=== PATIENT | female | born 1995 | race Caucasian/White ===

== ENCOUNTER 2020-06-11 08:16 | Inpatient (IN) | payer OTHER, SELFPAY ==
[2020-06-11] VITALS (57 sets, daily range): BP systolic 121–155; BP diastolic 70–108; PULSE 93–162; RESP 16–45; TEMP 36.4–37.7; O2SAT 87–100; BMI 31.5
--- NOTE | ~2020-06-11 | XR_ITS ---
EXAMINATION: XR chest 1V portable EXAM DATE: 06/11/2020 09:06 INDICATION: Cough, shortness of breath and fever. TECHNIQUE: Portable AP frontal chest x-ray was obtained. Comparison is made to prior examination from 09/10/2012. FINDINGS: There is moderate to large amount of bilateral mid and lower lung zone acute airspace disea se, could be edema or pneumonia. Recommend considering COVID 19 given community prevalence. No pneumo thorax or pleural effusion. The cardiomediastinal silhouette is prominent but magnified on this AP te chnique. There are no osseous abnormalities identified. IMPRESSION: Moderate to large amount of bilateral acute airspace disease. Possible COVID pneumonia. Reviewed, dictated and finalized at location A. VING LATHE TENDER IMPRESSION: Moderate to large amount of bilateral acute airspace disease. Possi ble COVID pneumonia.
--- NOTE | ~2020-06-11 | CT_ITS ---
EXAMINATION: CTA chest PE abdomen pel DATE: 06/11/2020 09:34 INDICATION: Cough, shortness of breath, fever, vomiting and abdominal pain. TECHNIQUE: Computed tomography (CT) pulmonary angiogram of the chest was performed with 100 mL Omnipa que-350 intravenous contrast. Additional 3D reconstructions utilizing coronal maximum intensity proje ction (MIP) were performed. CT of the abdomen and pelvis was performed with intravenous contrast util izing the same contrast bolus following a short delay. Automated exposure control and iterative recon struction technique were employed. The dose-length product was 948.08 mGy-cm. COMPARISON: None FINDINGS: Chest: Good but suboptimal contrast opacification of the pulmonary arteries. There is mild streak artifact f rom dense contrast in the superior vena cava and right atrium. Mild scattered respiratory motion arabella fact which decreases sensitivity and specificity in some of the smaller subsegmental pulmonary arteri es. Apparent pulmonary arterial filling defect within a primary subsegmental pulmonary artery of the inferior segment of the lingula. No other pulmonary emboli identified. Patchy groundglass opacities t hroughout both lungs with mid to lower lung predominance which could represent moderate pulmonary rosa ma or pneumonia including COVID pneumonia. Large calcified right lower lobe nodule consistent with ol d granulomatous disease. No pleural effusion or pneumothorax. Heart size is normal with no evident ri ght heart strain. Thoracic aorta is normal in caliber with no dissection. No pathologically enlarged thoracic lymphadenopathy. Bones are unremarkable. Abdomen/pelvis: Diffuse hepatic steatosis with focal sparing along the gallbladder fossa. Gallbladder, pancreas, sple en, bilateral adrenal glands and kidneys are normal. Bowels including appendix are normal. Bladder, a nteverted uterus and left adnexa are unremarkable. 2 cm likely dominant follicle in the right ovary. No free intraperitoneal gas or fluid. No pathologically enlarged abdominal or pelvic lymphadenopathy. Mild lower lumbar spondylosis with disc bulges at L4-L5 and L5-S1. IMPRESSION: 1. Suggestion of a single pulmonary embolism in a first order branch of the inferior segmental pulmon doroteo artery of the lingula. Specificity is however decreased primarily by some motion artifact. 2. Prominent pulmonary patchy groundglass opacities with bilateral mid and lower lung predominance wh ich could represent moderate pulmonary edema or pneumonia, particularly COVID pneumonia. 3. Diffuse hepatic steatosis. Reviewed, dictated and finalized at location A. AND DIE ASSEMBLER IMPRESSION: 1. Suggestion of a single pulmonary embolism in a first order branch of the inf erior segmental pulmonary artery of the lingula. Specificity is however decreas ed primarily by some motion artifact. 2. Prominent pulmonary patchy groundglass opacities with bilateral mid and lowe r lung predominance which could represent moderate pulmonary edema or pneumonia , particularly COVID pneumonia. 3. Diffuse hepatic steatosis.
--- NOTE | ~2020-06-11 | US_ITS ---
EXAMINATION: US venous doppler LE EXAM DATE: 06/12/2020 15:32 INDICATION: Shortness of breath. Pulmonary embolism. TECHNIQUE: Multiple grayscale, color flow and Doppler images of the lower extremity deep venous syste ms bilaterally were obtained and reviewed. Correlation is made to pulmonary CT report 06/11/2020. FINDINGS: Right side: The right common femoral, femoral and profunda veins demonstrate normal color flow, respi ratory variation, augmentation and compressibility. Compressibility, color flow confirmed within the right popliteal, posterior tibial, peroneal, and greater saphenous veins. Left side: The left common femoral, femoral and profunda veins demonstrate normal color flow, respira tory variation, augmentation and compressibility. Compressibility, color flow confirmed within the l eft popliteal, posterior tibial, peroneal, and greater saphenous veins. IMPRESSION: 1. No lower extremity deep venous thrombosis bilaterally. Reviewed, dictated and finalized at location A. TRUCTION EQUIPMENT OVERHAULER
--- NOTE | ~2020-06-11 | XR_ITS ---
XR chest 1V portable DATE: 06/22/2020 05:44 INDICATION: Pneumonia TECHNIQUE: Portable AP chest on June 22, 2020 at 0530 hours COMPARISON: 06/20/2020 portable AP chest at 2113 hours FINDINGS: There are severe relatively symmetric bilateral patchy consolidating pulmonary infiltrates; diffusion diagnosis includes extensive bilateral pneumonia, less likely pulmonary edema or ARDS. Heart size appears normal. No pleural effusion or pneumothorax. IMPRESSION: Persistent severe bilateral pulmonary infiltrates Reviewed, dictated and finalized at location A. DING MACHINE OPERATOR AUTOMATIC
--- NOTE | ~2020-06-11 | XR_ITS ---
XR chest 1V portable DATE: 06/20/2020 21:13 INDICATION: Tachycardia. Bilateral pneumonia. History of pulmonary embolus. TECHNIQUE: Portable upright AP chest on 06/20/2020 at 2113 hours COMPARISON: 06/11/2020 portable AP chest FINDINGS: Severe diffuse bilateral pulmonary infiltrates are noted involving both lungs, increased in severity since 06/11/2020. Findings suggest extensive bilateral pneumonia versus less likely pulmonar y edema or pulmonary hemorrhage. No pleural effusion or pneumothorax. Heart size is normal. IMPRESSION: Diffuse severe bilateral pulmonary infiltrates, increased since 06/11/2020 Reviewed, dictated and finalized at location A. PROJECT MANAGER IMPRESSION: Diffuse severe bilateral pulmonary infiltrates, increased since 05/22
--- NOTE | ~2020-06-11 | CT_ITS ---
EXAMINATION: CTA chest PE protocol DATE: 06/18/2020 13:42 INDICATION: Persistent hypoxia. TECHNIQUE: Computed tomography (CT) pulmonary angiogram of the chest was performed with 100 mL Omnipa que-350 intravenous contrast. Additional 3D reconstructions utilizing coronal maximum intensity proje ction (MIP) were performed. Automated exposure control and iterative reconstruction technique were em ployed. The dose-length product was 375.69 mGy-cm. COMPARISON: None FINDINGS: Excellent contrast opacification of the pulmonary arteries. There is mild streak artifact from dense contrast in the superior vena cava and right atrium. Mild scattered respiratory motion artifact most prominent at the lung bases. No definitive pulmonary embolism. Significant interval progression in di ffuse bilateral crazy paving pattern with large region of groundglass opacity with intervening smooth septal line thickening. There is relative sparing of the immediate subpleural lung. A couple calcifi ed right lower lobe nodules consistent with old granulomatous disease. Heart size is normal. No peric ardial effusion. Small sliding-type hiatal hernia. Thoracic aorta is normal in caliber with no dissec tion. No pathologically enlarged thoracic lymphadenopathy. Diffuse hepatic steatosis. Mild S-shaped c urvature of the thoracic spine. IMPRESSION: 1. No pulmonary embolism. 2. Interval increase in extensive bilateral groundglass opacities and smooth septal line thickening. Differential includes moderate pulmonary edema and/or pneumonia. 3. Diffuse hepatic steatosis. Reviewed, dictated and finalized at location B. IOVASCULAR SONOGRAPHER IMPRESSION: 1. No pulmonary embolism. 2. Interval increase in extensive bilateral groundglass opacities and smooth se ptal line thickening. Differential includes moderate pulmonary edema and/or pne umonia. 3. Diffuse hepatic steatosis.
--- NOTE | 2020-06-11 08:27 | ECG_ITS ---
Measurements Intervals Hester Rate: 154 P: 32 LA: 133 QRS: 77 QRSD: 80 T: 14 QT: 313 QTc: 502 Interpretive Statements SINUS TACHYCARDIA NONSPECIFIC T-WAVE ABNORMALITY- INFERIOR LEADS BASELINE ARTIFACT- I, III, AVL ABNORMAL ECG Electronically Signed On 06-11-2020 9:03:46 LOCKER ROOM ATTENDANT by Julien Boyce D.O.
[2020-06-11] MEDS: SODIUM CHLORIDE 0.9% IV 2,000 ML 999 ML IV CONT (08:30)
--- NOTE | 2020-06-11 08:42 | PC.NURSE ---
PT PLACED ON 3L VIA NC DUE TO O2 BEING 87% ON RA, PT DENIES WEARING O2 AT HOME, PT O2 INCREASED TO 94% ON 3L, ERP KARLA INFORMED, NO NEW ORDERS.
[2020-06-11 08:52] LABS: Basophils Absolute Auto 0.1 K/mm3 (0.0-0.1); Basophils Percent Auto 0.5 % (0.2-1.2); Eosinophils Percent Auto 0.1 % (0-4.4); Hematocrit 44.4 % (37.0-47.0); Hemoglobin 15.4 g/dL (12.0-15.0); Immature Granulocyte Absolute 0.11 K/mm3 (0.00-0.031); Immature Granulocyte Percent A 0.6 % (0-0.5); Lymphocytes Absolute Auto 0.54 K/mm3 (0.9-3.2); Lymphocytes Percent Auto 2.9 % (18.3-44.2); Mean Corpuscular HGB Conc 34.7 g/dl (32-36); Mean Corpuscular Hemoglobin 32.6 pg (26-34); Mean Corpuscular Volume 93.9 fl (80-100); Mean Platelet Volume 8.8 fl (7.4-10.4); Monocytes Absolute Auto 0.2 K/mm3 (0.1-0.6); Monocytes Percent Auto 1.2 % (2.6-8.5); Neutrophils Absolute Auto 17.9 K/mm3 (1.3-6.7); Neutrophils Percent Auto 94.7 % (45.5-73.1); Platelet Count Result 453 k/mm3 (150-375); Red Blood Count 4.73 M/mm3 (4.2-5.4); Red Cell Distribution Width 11.5 % (11.5-14.5); White Blood Count 18.9 K/mm3 (4.5-10.0)
[2020-06-11 08:55] LABS: Add Urine Microscopic? YES; Appearance Urine Cloudy (Clear); Bacteria Urine 1+ /hpf; Bilirubin Urine 1+ (Negative); Blood Urine 1+ (Negative); Color Urine Amber (Yellow); Glucose Urine UA Negative (Negative); Ketones Urine Negative (Negative); Leukocyte Esterase Ur Negative LEU/UL (Negative); Mucus Urine Heavy /lpf; Nitrate Urine Negative (Negative); Protein Urine 2+ mg/dL (Negative); RBC Urine 0-2 /hpf (0-2); Specific Grav Ur 1.026 (1.001-1.035); Squamous Epithelial Cell Urine Many /hpf (Few)
[2020-06-11] MEDS: ONDANSETRON INJ 4 MG/2 ML VIAL IV PUSH (08:59)
--- NOTE | 2020-06-11 09:01 | PC.NURSE ---
rADIOLOGY AT BEDSIDE FOR CHEST XRAY
[2020-06-11 09:03] LABS: D Dimer 2.56 ug/mL (<0.48)
[2020-06-11 09:03] LABS: Alanine Aminotransferase 101 U/L (4-35); Albumin Level 4.1 g/dL (3.5-5.1); Alkaline Phosphatase 154 U/L (38-126); Anion Gap 7 mmol/L (8-16); Aspartate Amino Transferase 108 U/L (14-36); Bilirubin,Total 1.3 mg/dL (0.2-1.3); Blood Urea Nitrogen 10 mg/dL (7-17); Calcium 9.6 mg/dL (8.4-10.2); Carbon Dioxide 34 mmol/L (22-30); Chloride 93 mmol/L (98-107); Estimated Glomerular Filt Rate > 60; Glucose 157 mg/dL (65-105); Lipase 52 U/L (23-300); Potassium 3.4 mmol/L (3.4-5.0); Sodium 134 mmol/L (137-145)
[2020-06-11 09:15] LABS: Troponin I < 0.012 ng/mL (0.000-0.034)
[2020-06-11 10:10] LABS: Partial Thromboplastin Time 38.7 SECONDS (22.3-36.8)
--- NOTE | 2020-06-11 10:14 | ED.GENADULT ---
HPI - General Adult General Chief complaint: Upper Respiratory Infection Stated complaint: vomiting Time Seen by Provider: 06/11/20 08:23 History of Present Illness HPI narrative: Patient is a 24-year-old female presents the emergency department with chief complaint of vomiting. Patient states that she has been coughing for several days and is actually been coughing so much that she starts vomiting. The patient states she feels extremely weak also feels extremely short of breath as well. Patient states is worsened with exertion. Patient reports has had a low-grade fever at home as well. Patient is unsure of any Covid exposure. Patient denies diarrhea denies localizing abdominal pain. Related Data Home Medications Medication Instructions Recorded Confirmed No Home Medications 06/11/20 06/11/20 Allergies Allergy/AdvReac Type Severity Reaction Status Date / Time No Known Allergies Allergy Verified 06/11/20 08:30 Review of Systems Review of Systems: Narrative: A 10 system review of systems was completed on the patient and is negative except for what is stated in the HPI. Nursing and ancillary documentation was reviewed. [facility] Social History Social History Smoking status: Never smoker Alcohol intake: current Substance use: never Gender identity (if verbalized by the patient): Female Exam Narrative: Exam Narrative: GENERAL: Well-appearing, well-nourished, and in no acute distress. HEAD: Normocephalic, atraumatic. EYES: PERRLA and EOMI. ENT: Nares clear, no rhinorrhea or epistaxis. Mucous membranes moist. NECK: Supple. CHEST: Clear to auscultation. No respiratory distress. HEART: Regular rate and rhythm. No murmur heard. Normal peripheral pulses. ABDOMEN: Soft, nontender, nondistended, normal active bowel sounds. EXTREMITIES: Normal range of motion. No edema. SKIN: Warm, dry, no rash. NEURO: No focal deficits. Alert and oriented x3. PSYCH: Normal mood and affect. Course Vital Signs Vital signs: Vital Signs Temperature 37.1 C 06/11/20 08:25 Pulse Rate 162 H 06/11/20 08:25 Respiratory Rate 32 H 06/11/20 08:25 Blood Pressure 155/70 H 06/11/20 08:25 Pulse Oximetry 87 L 06/11/20 08:25 Temperature 37.7 C H 06/11/20 09:00 Pulse Rate 119 H 06/11/20 09:46 Respiratory Rate 29 H 06/11/20 09:46 Blood Pressure 137/85 06/11/20 09:46 Pulse Oximetry 97 06/11/20 09:46 Medical Decision Making Vital Signs Vital Signs: Vital Signs Temperature 37.1 C 06/11/20 08:25 Pulse Rate 162 H 06/11/20 08:25 Respiratory Rate 32 H 06/11/20 08:25 Blood Pressure 155/70 H 06/11/20 08:25 Pulse Oximetry 87 L 06/11/20 08:25 Temperature 37.7 C H 06/11/20 09:00 Pulse Rate 119 H 06/11/20 09:46 Respiratory Rate 29 H 06/11/20 09:46 Blood Pressure 137/85 06/11/20 09:46 Pulse Oximetry 97 06/11/20 09:46 Lab Data Result diagrams: 06/11/20 08:35 06/11/20 08:35 Labs: Lab Results 06/11/20 06/11/20 06/11/20 Range/Units 08:34 08:34 08:35 WBC 18.9 H (4.5-10.0) K/mm3 RBC 4.73 (4.2-5.4) M/mm3 Hgb 15.4 H (12.0-15.0) g/dL Hct 44.4 (37.0-47.0) % MCV 93.9 (80-100) fl MCH 32.6 (26-34) pg MCHC 34.7 (32-36) g/dl RDW 11.5 (11.5-14.5) % Plt Count 453 H (150-375) k/mm3 MPV 8.8 (7.4-10.4) fl Immature Gran % (Auto) 0.6 H (0-0.5) % Neut % (Auto) 94.7 H (45.5-73.1) % Lymph % (Auto) 2.9 L (18.3-44.2) % Trimble % (Auto) 1.2 L (2.6-8.5) % Eos % (Auto) 0.1 (0-4.4) % Baso % (Auto) 0.5 (0.2-1.2) % Lymph # (Auto) 0.54 L (0.9-3.2) K/mm3 Tr[place]ble # (Auto) 0.2 (0.1-0.6) K/mm3 Eos # (Auto) 0.0 (0-0.3) K/mm3 Baso # (Auto) 0.1 (0.0-0.1) K/mm3 Abs Immat Gran (auto) 0.11 H (0.00-0.031) K/mm3 Absolute Neuts (auto) 17.9 H (1.3-6.7) K/mm3 Absolute Nucleated RBC 0.0 (0.0-0.012) K/mm3 Nucleated R
[2020-06-11] MEDS: DEXAMETHASONE SOD PHOS INJ 4 MG/ML VIAL 6 MG IV PUSH (10:52)
[2020-06-11] MEDS: ENOXAPARIN 100 MG/ML SYRINGE 90 MG SUB-Q ×2 (10:53→23:31)
--- NOTE | 2020-06-11 11:06 | PC.NURSE ---
SPOKE WITH PT ABOUT COMPAZINE ORDER, VERBAL ORDER TO SWITCH FROM IM COMPAZINE TO IVP.
[2020-06-11] MEDS: PROCHLORPERAZINE EDISYLATE 10 MG/2 ML VIAL IV PUSH (11:07)
--- NOTE | 2020-06-11 12:19 | PC.NURSE ---
PT DENIES WANTING LUNCH TRAY BUT HAS ASKED FOR CRACKERS AND SPRITE DURING ROUNDING, PT PROVIDED WITH SALTINES AND SPRITE WITH CUP OF ICE.
--- NOTE | 2020-06-11 12:39 | PC.NURSE ---
Rachna, ED Registration aware pt. needs to be changed to boarded status.
--- NOTE | 2020-06-11 14:00 | PM.IMHP ---
H&P: HPI History of Present Illness Date/Time: 06/11/20 14:00 Chief Complaint: Cough, shortness of breath, weakness. Narrative: This is a 24-year-old female with hepatic steatosis and anxiety who presented to the emergency department earlier today via private vehicle from home with complaints of cough, shortness of breath, and weakness. She has not been feeling well since the weekend with multiple symptoms to include decreased appetite, nausea, vomiting (mainly posttussive), sinus congestion, cough occasionally productive of clear phlegm, dyspnea on exertion, myalgias, arthralgias, and generalized weakness. She also complains of mild, midsternal chest discomfort on deep inspiration, not necessarily pleuritic. On arrival to triage, her SpO2 was in the mid 80s on room air; a subsequent chest CTA demonstrated prominent, bilateral ground-glass opacities inside technical sales representative of pneumonia or pulmonary edema as well as suggestion of a small pulmonary embolism in the lingula. She has no known exposure to those positive for COVID-19 and she reports wearing a mask a majority of the time when interacting with the public. She has had a low-grade fever and occasional chills and sweats. No anosmia or dysgeusia. No diarrhea. No dysphagia or concerns for aspiration. No lower extremity edema, calf pain, or tenderness. No history of venous thromboembolism, cardiac disease, or immunosuppression. Review of Systems Review of Systems: Narrative: Twelve systems were reviewed with pertinent positives and negatives as per HPI. No lightheadedness or dizziness. She denies focal weakness and paresthesias. Last menstrual period was about a week ago. No dysuria. Of note the patient was found to have diffuse hepatic steatosis on imaging done at outside facility sometime last fall. She admitted to drinking about 3 alcoholic beverages a day but has since stopped drinking. Except as documented, all other systems were reviewed and are negative. [facility] Past Medical History Medical History (Updated 06/11/20 @ 21:25 by Yamila Chery PA-C) Anxiety Hepatic steatosis Surgical History Surgical History (Updated 06/11/20 @ 21:21 by Yamila Chery PA-C) No history of previous surgery Family History Family History Other No significant family history Social History Social History (Updated 06/11/20 @ 21:22 by Ymaila Chery PA-C) Social History: The patient lives in [place] with her boyfriend. Lifelong nonsmoker. No illicit substance use. She used to drink about 3 alcoholic beverages a day but quit in the fall. She designates her dad Omid as her surrogate decision maker and she wishes to be a full code. Spiritual care concerns: No Meds Home Medications and Allergies Home Medications Medication Instructions Recorded Confirmed Type No Home Medications 06/11/20 06/11/20 History Allergies Allergy/AdvReac Type Severity Reaction Status Date / Time No Known Allergies Allergy Verified 06/11/20 08:30 Vital Signs Vital Signs - 24 hr 06/11/20 08:25 06/11/20 08:42 06/11/20 08:43 Temperature 98.8 F Pulse Rate 162 H 149 H Respiratory Rate 32 H 31 H Blood Pressure 155/70 H Pulse Oximetry 87 L 90 87 L 06/11/20 08:45 06/11/20 08:46 06/11/20 08:47 Temperature Pulse Rate 143 H 143 H 140 H Respiratory Rate 41 H 45 H 31 H Blood Pressure 141/86 H Pulse Oximetry 93 92 93 06/11/20 09:00 06/11/20 09:01 06/11/20 09:15 Temperature 99.8 F H Pulse Rate 139 H 138 H 128 H Respiratory Rate 44 H 41 H 33 H Blood Pressure 142/95 H Pulse Oximetry 95 95 97 06/11/20 09:16 06/11/20 09:35 06/11/20 09:36 Temperature Pulse Rate 132 H 128 H Respiratory Rate 27 H 33 H 31 H Blood Pressure 132/86 136/84 Pulse Oximetry 98 97 97 06/11/20 09:45 06/11/20 09:46 06/11/20 09:47 Temperature Pulse Rate 119 H 119 H 123 H Respiratory Rate 29 H 29
--- NOTE | 2020-06-11 15:00 | ADMGEN ---
This patient, Mary Reina, was admitted to IMU Room 213-01. Patient/family oriented to hospital policies and general routines including ID bracelet, bed and alarms, visiting hours, pain management, procedures, bathroom and other care routines, personal items, smoking policy, room service/diet, and visiting hours. Information on how to activate the Rapid Response Team has been discussed. Patient/Family are encouraged to report perceived risks to care and to ask questions if they do not understand what they are told or what they should do.
[2020-06-11 16:53] LABS: Hemoglobin A1C 5.2 % (<5.7)
[2020-06-11 16:54] LABS: Lactate Dehydrogenase 1236 U/L (313-618); Magnesium 2.4 mg/dL (1.6-2.3)
[2020-06-11 17:04] LABS: NT Pro B Type Natriuretic Pept 61 PG/ML (5-100)
[2020-06-11 17:09] LABS: Alveolar/Arterial O2 Gradient 322.6 mmHg; Base Excess ABG 3.9 mEq/l (+/-2.0); Carboxyhemoglobin 0.3 % THb (0-2.0); Fractional Inspired Oxygen 60 %; HCO3 ABG 27.4 mEq/l (22.0-26.0); Methemoglobin ABG 0.3 %THb (0-1.5); Oxygen Content ABG 18.8 %vol (16.0-22.0); Oxygen Saturation ABG 93.8 % (95.0-100.0); Oxyhemoglobin 92.3 % THb (90.0-100.0); PCO2 ABG 37.6 mmHg (35.0-45.0); PO2 ABG 63.8 mmHg (80.0-100.0); PO2 FiO2 Ratio Arterial Blood 1.06 %; Reduced Hemoglobin 7.1 %THb (0-5.0); Total Hemoglobin 14.5 g/dL (12.0-18.0)
[2020-06-11 17:10] LABS: Device HIGH FLOW NASAL CANN; Modified Allen's Test Pass; Site Drawn LEFT RADIAL
[2020-06-11 17:31] LABS: CRP 34.1 mg/dL (<1.0)
[2020-06-11 17:38] LABS: SARS-CoV-2 RNA PCR Negative
[2020-06-11] MEDS: SODIUM CHLORIDE 0.9% IV 1,000 ML 125 ML IV CONT (18:58)
[2020-06-12] VITALS (15 sets, daily range): BP systolic 121–141; BP diastolic 70–94; PULSE 77–132; RESP 18–30; TEMP 36.1–37.8; O2SAT 78–99
[2020-06-12] MEDS: ONDANSETRON INJ 4 MG/2 ML VIAL IV PUSH ×2 (02:14→11:31)
[2020-06-12 05:28] LABS: Hemoglobin 13.1 g/dL (12.0-15.0); Mean Corpuscular HGB Conc 34.5 g/dl (32-36); Mean Corpuscular Hemoglobin 32.6 pg (26-34); Mean Corpuscular Volume 94.5 fl (80-100); Mean Platelet Volume 8.7 fl (7.4-10.4); Platelet Count Result 414 k/mm3 (150-375); Red Blood Count 4.02 M/mm3 (4.2-5.4); Red Cell Distribution Width 11.7 % (11.5-14.5)
[2020-06-12 05:43] LABS: Alanine Aminotransferase 98 U/L (4-35); Albumin Level 3.2 g/dL (3.5-5.1); Alkaline Phosphatase 125 U/L (38-126); Anion Gap 2 mmol/L (8-16); Aspartate Amino Transferase 129 U/L (14-36); Bilirubin,Total 0.8 mg/dL (0.2-1.3); Blood Urea Nitrogen 6 mg/dL (7-17); Calcium 8.1 mg/dL (8.4-10.2); Carbon Dioxide 32 mmol/L (22-30); Chloride 99 mmol/L (98-107); Estimated CRCL calculation 134 ml/min; Estimated Glomerular Filt Rate > 60; Glucose 121 mg/dL (65-105); Potassium 3.1 mmol/L (3.4-5.0); Sodium 133 mmol/L (137-145)
[2020-06-12] MEDS: DEXAMETHASONE 2 MG TABLET 6 MG PO (11:30)
[2020-06-12] MEDS: ENOXAPARIN 100 MG/ML SYRINGE 90 MG SUB-Q ×2 (11:32→21:21)
--- NOTE | 2020-06-12 13:27 | PM.IMPN ---
Progress Note: A&P Assessment and Plan (1) Sepsis: Code(s): A41.9 - Sepsis, unspecified organism Status: Acute Assessment and Plan: The patient meets criteria for sepsis with low-grade fever, leukocytosis, tachycardia, and acute respiratory failure with hypoxia secondary to underlying pneumonia. Lactic acid level is within normal limits. WBC 18.9 on admission but better today. Blood cultures NGTD. Contineu IV abx. (2) Acute respiratory failure with hypoxia: Code(s): J96.01 - Acute respiratory failure with hypoxia Status: Acute Assessment and Plan: The patient was hypoxic on admission and now at 10 L high-flow. SARS2-CoV-2 test was negative 06/11; repeat test pending due to strong suspicion for COVID-19. Continue droplet isolation. She received a dose of dexamethasone in the ED 06/11 and this has been continued. Continue abx for bacterial PNA. Mucinex for cough. (3) Bilateral pneumonia: Code(s): J18.9 - Pneumonia, unspecified organism Status: Acute Assessment and Plan: WBC elevated to 18.9K and now having low grade fevers. Chest CT showing bilateral LL airspace disease. Sputum to be sent for culture. Legionella, strep pneumoniae, and mycoplasma serologies sent as well. Procalcitonin level pending. Repeat SARS2-CoV2 pending. Continue IV abx. (4) Person under investigation for COVID-19: Code(s): Z20.822 - Contact with and (suspected) exposure to COVID-19 Status: Acute Assessment and Plan: As above. Repeat testing ordered. (5) Pulmonary embolism: Qualifiers: Acute cor pulmonale presence: without acute cor pulmonale Chronicity: acute Pulmonary embolism type: unspecified Qualified Code(s): I26.99 - Other pulmonary embolism without acute cor pulmonale Code(s): I26.99 - Other pulmonary embolism without acute cor pulmonale Status: Acute Assessment and Plan: Chest CTA showing a small pulmonary emboli in the lingula. She was started on Lovenox 1 milligram/kilogram Q12H. Check dopplers; consider Echo. (6) Hepatic steatosis: Code(s): K76.0 - Fatty (change of) liver, not elsewhere classified Status: Acute Assessment and Plan: LFTs were previously elevated an outpatient, likely due to hepatic steatosis. Levels are a bit higher than what she typically runs and may very well be due to underlying infection/sepsis. Continue to follow. Subjective Date/time seen: 06/12/20 13:27 Interval history: Date of service 06/12 24-year-old female with hepatic steatosis here for cough, shortness of and weakness found to have pneumonia with sepsis. Patient feels slightly better today. She feels less short of breath. No chest pain. Poor appetite with nausea. Also having diarrhea. No anosmia but does have dysgeusia. Exam Narrative: Exam Narrative: 100.0 141/81 128 28 92% Gen - NARD lying semi-recumbent in bed Chest - few basilar rhocnhi o/e distant BS CV -tachycardic, regular. Telemetry showing sinus tachycardia Abd - Soft, NT/ND, Positive BS Ext - No pedal edema Psych - anxious mood and affect Skin - Warm and dry Objective Data Vital Signs Vital Signs: Vital Signs - 24 hr 06/11/20 13:30 06/11/20 13:31 06/11/20 13:45 Temperature Pulse Rate 110 H 109 H 112 H Respiratory Rate 21 H 23 H 23 H Blood Pressure 135/102 H Pulse Oximetry 92 93 95 06/11/20 14:24 06/11/20 15:02 06/11/20 15:30 Temperature 97.6 F Pulse Rate 115 H 112 H Respiratory Rate 17 22 H Blood Pressure 133/94 H 143/90 H Pulse Oximetry 97 87 L 89 L 06/11/20 15:35 06/11/20 16:00 06/11/20 17:32 Temperature 98.6 F Pulse Rate 111 H 117 H Respiratory Rate 20 Blood Pressure 143/102 H Pulse Oximetry 93 94 93 06/11/20 18:00 06/11/20 20:00 06/11/20 22:00 Temperature 97.5 F L Pulse Rate 125 H 122 H 122 H Respiratory Rate 18 Blood Pressure 132/85 Pulse Oximetry 94 06/12/20
[2020-06-12] MEDS: IBUPROFEN 200 MG TABLET PO (14:08)
[2020-06-12] MEDS: POTASSIUM CHLORIDE 20 MEQ TABLET 40 MEQ PO (14:09)
--- NOTE | 2020-06-12 16:27 | PC.NURSE ---
This patient, Mary Reina, was transferred to ICU-11 on 06/12/20 at 1620. Personal belongings sent with patient. Report given to Yann FLORES. Appropriate documentation sent with patient.
--- NOTE | 2020-06-12 16:39 | PC.NURSE ---
At approximately 1545 it was noted that patient's O2 was at 77% on her 10L Highflow Cannula.Patient was assessed and oxygen was turned up to 15l Highflow Cannula and 15L/NRB was supplemented as well. was notified of patient's change in condition. New orders to transfer patient to ICU were received. Will notify patient's father of this transfer.
[2020-06-12] MEDS: guaiFENesin 12 HR 600 MG TABCR PO (21:21)
[2020-06-12] MEDS: LOPERAMIDE HCL 2 MG CAPSULE 4 MG PO (22:07)
[2020-06-13] VITALS (21 sets, daily range): BP systolic 121–141; BP diastolic 61–90; PULSE 103–131; RESP 15–30; TEMP 36.6–38.5; O2SAT 90–99
[2020-06-13] MEDS: IBUPROFEN 200 MG TABLET PO ×2 (00:09→10:49)
[2020-06-13 05:57] LABS: Basophils Absolute Auto 0.1 K/mm3 (0.0-0.1); Basophils Percent Auto 0.3 % (0.2-1.2); Eosinophils Absolute Auto 0.1 K/mm3 (0-0.3); Eosinophils Percent Auto 0.7 % (0-4.4); Hemoglobin 13.6 g/dL (12.0-15.0); Immature Granulocyte Absolute 0.15 K/mm3 (0.00-0.031); Immature Granulocyte Percent A 0.9 % (0-0.5); Lymphocytes Percent Auto 6.2 % (18.3-44.2); Mean Corpuscular Hemoglobin 32.5 pg (26-34); Mean Corpuscular Volume 95.7 fl (80-100); Mean Platelet Volume 8.9 fl (7.4-10.4); Monocytes Absolute Auto 0.1 K/mm3 (0.1-0.6); Monocytes Percent Auto 0.9 % (2.6-8.5); Neutrophils Absolute Auto 14.7 K/mm3 (1.3-6.7); Platelet Count Result 440 k/mm3 (150-375); Red Blood Count 4.18 M/mm3 (4.2-5.4); Red Cell Distribution Width 11.9 % (11.5-14.5); White Blood Count 16.2 K/mm3 (4.5-10.0)
[2020-06-13 06:16] LABS: Alanine Aminotransferase 108 U/L (4-35); Albumin Level 3.2 g/dL (3.5-5.1); Alkaline Phosphatase 128 U/L (38-126); Anion Gap 4 mmol/L (8-16); Aspartate Amino Transferase 119 U/L (14-36); Bilirubin,Total 0.6 mg/dL (0.2-1.3); Blood Urea Nitrogen 8 mg/dL (7-17); Calcium 8.6 mg/dL (8.4-10.2); Carbon Dioxide 34 mmol/L (22-30); Chloride 96 mmol/L (98-107); Estimated CRCL calculation 133 ml/min; Estimated Glomerular Filt Rate > 60; Glucose 122 mg/dL (65-105); Magnesium 2.3 mg/dL (1.6-2.3); Potassium 3.5 mmol/L (3.4-5.0); Sodium 134 mmol/L (137-145)
--- NOTE | 2020-06-13 06:22 | PC.NURSE ---
This patient, Mary Reina, was transferred to [ [id number]] on 06/13/20 at 0622. Personal belongings sent with patient. Report given to [ Kelly FLORES]. Appropriate documentation sent with patient.
[2020-06-13] MEDS: guaiFENesin 12 HR 600 MG TABCR PO ×2 (10:46→21:29)
[2020-06-13] MEDS: DEXAMETHASONE 2 MG TABLET 6 MG PO (10:47)
[2020-06-13] MEDS: PANTOPRAZOLE 40 MG TABLET PO (10:48)
[2020-06-13] MEDS: ENOXAPARIN 100 MG/ML SYRINGE 90 MG SUB-Q ×2 (10:48→21:30)
[2020-06-13] MEDS: ONDANSETRON INJ 4 MG/2 ML VIAL IV PUSH (10:53)
--- NOTE | 2020-06-13 16:10 | PM.IMPN ---
Progress Note: A&P Assessment and Plan (1) Sepsis: Code(s): A41.9 - Sepsis, unspecified organism Status: Acute Assessment and Plan: The patient meets criteria for sepsis with fever, leukocytosis, tachycardia, and acute respiratory failure with hypoxia secondary to underlying pneumonia. Lactic acid level is within normal limits. WBC 18.9 on admission but better overall. Blood cultures NGTD. Contineue IV abx. (2) Acute respiratory failure with hypoxia: Code(s): J96.01 - Acute respiratory failure with hypoxia Status: Acute Assessment and Plan: The patient was hypoxic on admission and now at 30L/min high-flow. SARS2-CoV-2 test was negative 06/11; repeat test pending due to strong suspicion for COVID-19. Continue droplet isolation. She received a dose of dexamethasone in the ED 06/11 and this has been continued. Continue abx for bacterial PNA. Mucinex for cough. (3) Bilateral pneumonia: Code(s): J18.9 - Pneumonia, unspecified organism Status: Acute Assessment and Plan: WBC elevated to 18.9K and with fevers. Chest CT showing bilateral LL airspace disease. Sputum to be sent for culture. Legionella, strep pneumoniae, and mycoplasma serologies sent as well. Procalcitonin level pending. Repeat SARS2-CoV2 pending. Continue IV abx. (4) Person under investigation for COVID-19: Code(s): Z20.822 - Contact with and (suspected) exposure to COVID-19 Status: Acute Assessment and Plan: As above. Repeat testing ordered. (5) Pulmonary embolism: Qualifiers: Acute cor pulmonale presence: without acute cor pulmonale Chronicity: acute Pulmonary embolism type: unspecified Qualified Code(s): I26.99 - Other pulmonary embolism without acute cor pulmonale Code(s): I26.99 - Other pulmonary embolism without acute cor pulmonale Status: Acute Assessment and Plan: Chest CTA showing a small pulmonary emboli in the lingula. She was started on Lovenox 1 milligram/kilogram Q12H. LE venous dopplers negative. (6) Hepatic steatosis: Code(s): K76.0 - Fatty (change of) liver, not elsewhere classified Status: Acute Assessment and Plan: LFTs were previously elevated an outpatient, likely due to hepatic steatosis. Levels have loc up and down since admission related to underlying infection/sepsis. Continue to follow. Subjective Date/time seen: 06/13/20 16:10 Interval history: Date of service 06/13 24-year-old female with hepatic steatosis here for cough, shortness of and weakness found to have pneumonia with sepsis. Feels much better. Decreased cough today. Feels less SOB. No CP. No diarrhea. Eating better. Exam Narrative: Exam Narrative: Tm 101.3 100.9 128/72 127 22 95% HFNC Gen - NARD Chest - distant BS CV -tachycardic, regular. Telemetry showing sinus tachycardia Abd - Soft, NT/ND, Positive BS Ext - No pedal edema Psych - nml mood and affect Skin - Warm and dry Objective Data Vital Signs Vital Signs: Vital Signs - 24 hr 06/12/20 16:17 06/12/20 18:00 06/12/20 20:00 Temperature 99.3 F Pulse Rate 112 H 101 H Respiratory Rate 30 H 28 H Blood Pressure 139/92 H 128/94 H Pulse Oximetry 94 99 95 06/12/20 21:30 06/12/20 22:00 06/13/20 00:00 Temperature 101.3 F H Pulse Rate 99 104 H 115 H Respiratory Rate 22 H 15 Blood Pressure 125/81 124/80 Pulse Oximetry 92 94 92 06/13/20 00:09 06/13/20 01:09 06/13/20 01:41 Temperature 101.3 F H 99.3 F Pulse Rate 114 H Respiratory Rate 28 H Blood Pressure 137/86 Pulse Oximetry 90 06/13/20 04:00 06/13/20 05:30 06/13/20 06:00 Temperature 99.2 F Pulse Rate 110 H 113 H 110 H Respiratory Rate 30 H Blood Pressure 129/78 Pulse Oximetry 94 94 06/13/20 08:00 06/13/20 10:00 06/13/20 10:49 Temperature 100.8 F H 100.8 F H Pulse Rate 131 H 113 H Respiratory Rate 28 H Blood Pressure 141/81 H Pulse Oxime
[2020-06-13 17:16] LABS: SARS-CoV-2 RNA PCR Negative
[2020-06-14] VITALS (18 sets, daily range): BP systolic 113–145; BP diastolic 61–79; PULSE 99–125; RESP 20–26; TEMP 36.2–37.3; O2SAT 90–100
[2020-06-14 03:49] LABS: Hemoglobin 13.5 g/dL (12.0-15.0); Mean Corpuscular HGB Conc 34.6 g/dl (32-36); Mean Corpuscular Hemoglobin 32.8 pg (26-34); Mean Corpuscular Volume 94.9 fl (80-100); Mean Platelet Volume 8.6 fl (7.4-10.4); Platelet Count Result 528 k/mm3 (150-375); Red Blood Count 4.11 M/mm3 (4.2-5.4); Red Cell Distribution Width 11.9 % (11.5-14.5); White Blood Count 19.3 K/mm3 (4.5-10.0)
[2020-06-14 03:55] LABS: Alanine Aminotransferase 108 U/L (4-35); Albumin Level 3.4 g/dL (3.5-5.1); Alkaline Phosphatase 147 U/L (38-126); Anion Gap 6 mmol/L (8-16); Aspartate Amino Transferase 135 U/L (14-36); Bilirubin,Total 0.9 mg/dL (0.2-1.3); Blood Urea Nitrogen 10 mg/dL (7-17); Calcium 8.8 mg/dL (8.4-10.2); Carbon Dioxide 34 mmol/L (22-30); Chloride 94 mmol/L (98-107); Estimated CRCL calculation 103 ml/min; Estimated Glomerular Filt Rate > 60; Glucose 127 mg/dL (65-105); Potassium 3.3 mmol/L (3.4-5.0); Sodium 134 mmol/L (137-145)
[2020-06-14 04:42] LABS: Vancomycin Trough < 5.0 ug/mL (10.0-20.0)
[2020-06-14] MEDS: DEXAMETHASONE 2 MG TABLET 6 MG PO (08:36)
[2020-06-14] MEDS: PANTOPRAZOLE 40 MG TABLET PO (08:37)
[2020-06-14] MEDS: guaiFENesin 12 HR 600 MG TABCR PO ×2 (08:39→20:12)
[2020-06-14] MEDS: ENOXAPARIN 100 MG/ML SYRINGE 90 MG SUB-Q ×2 (08:39→20:12)
--- NOTE | 2020-06-14 11:51 | PM.IMPN ---
Progress Note: A&P Assessment and Plan (1) Sepsis: Code(s): A41.9 - Sepsis, unspecified organism Status: Acute Assessment and Plan: The patient meets criteria for sepsis with fever, leukocytosis, tachycardia, and acute respiratory failure with hypoxia secondary to underlying pneumonia. Lactic acid level is within normal limits. WBC back up but could be from steroids. Blood cultures NGTD. Continue IV abx. (2) Acute respiratory failure with hypoxia: Code(s): J96.01 - Acute respiratory failure with hypoxia Status: Acute Assessment and Plan: The patient was hypoxic on admission and now at 60L/min high-flow. SARS2-CoV-2 test was negative 06/11 and again 06/12. Still with strong suspicion so will repeat a 3rd time. Consider also bacterial PNA with possibly underlying lung issue (A1AT deficiency?). Continue droplet isolation. She received a dose of dexamethasone in the ED 06/11 and this will be continued. Continue abx for bacterial PNA. Mucinex for cough. (3) Bilateral pneumonia: Code(s): J18.9 - Pneumonia, unspecified organism Status: Acute Assessment and Plan: WBC elevated to 18.9K and with fevers. Chest CT showing bilateral airspace disease mostly posterior and lower. Sputum to be sent for culture. Legionella, strep pneumoniae, and mycoplasma serologies sent as well. Procalcitonin level pending. Fevers waning but WBC up (could be from steroids). SARS2-CoV2 negative x2. Continue IV abx. (4) Person under investigation for COVID-19: Code(s): Z20.822 - Contact with and (suspected) exposure to COVID-19 Status: Acute Assessment and Plan: As above. Patient tested negative on 06/11 and again 06/12. Still with concern for COVID. Repeat a 3rd time before stopping isolation. Increase activity. Have patient lie prone as she toelrates. (5) Pulmonary embolism: Qualifiers: Acute cor pulmonale presence: without acute cor pulmonale Chronicity: acute Pulmonary embolism type: unspecified Qualified Code(s): I26.99 - Other pulmonary embolism without acute cor pulmonale Code(s): I26.99 - Other pulmonary embolism without acute cor pulmonale Status: Acute Assessment and Plan: Chest CTA showing a small pulmonary emboli in the lingula. She was started on Lovenox therapeutic dose. LE venous dopplers negative. Check Echo. (6) Hepatic steatosis: Code(s): K76.0 - Fatty (change of) liver, not elsewhere classified Status: Acute Assessment and Plan: LFTs were previously elevated an outpatient. She states she was diagnosed with hepatic steatosis when she went to the ED in [place]. She has not had any further workup in this regard. LFTs have been up and down since admission related to underlying infection/sepsis. Proceed with workup. Preg test negative. Continue to follow. Subjective Date/time seen: 06/14/20 11:51 Interval history: Date of service 06/14 24-year-old female with hepatic steatosis here for cough, shortness of and weakness found to have pneumonia with sepsis. Feels much better. Decreased cough today. Feels less SOB. No CP. No diarrhea. Eating better. Exam Narrative: Exam Narrative: Tm 101.3 100.9 128/72 127 22 95% HFNC Gen - NARD Chest - distant BS CV -tachycardic, regular. Telemetry showing sinus tachycardia Abd - Soft, NT/ND, Positive BS Ext - No pedal edema Psych - nml mood and affect Skin - Warm and dry Objective Data Vital Signs Vital Signs: Vital Signs - 24 hr 06/13/20 12:00 06/13/20 14:00 06/13/20 15:09 Temperature 100.9 F H Pulse Rate 127 H 103 H Respiratory Rate 22 H Blood Pressure 128/72 Pulse Oximetry 94 97 06/13/20 15:52 06/13/20 16:00 06/13/20 18:00 Temperature 98 F Pulse Rate 117 H 113 H Respiratory Rate 26 H Blood Pressure 132/86 Pulse Oximetry 95 94 06/13/20 20:00 06/13/20 22:00 06/13/20 23:51 Temperature 99
[2020-06-14 13:17] LABS: Ammonia 24 umol/L (9-30)
[2020-06-14 13:43] LABS: Iron 21 ug/dL (37-170)
[2020-06-14 13:52] LABS: Percent Iron Saturation 10 % (20-50)
[2020-06-14 14:15] LABS: Hepatitis B Surface Antigen Negative (Negative)
[2020-06-14 14:21] LABS: HAV RESULT Negative (Negative); Hepatitis B Core IgM Result Negative (Negative)
[2020-06-14 14:23] LABS: Procalcitonin 0.36 ng/mL (<0.10)
[2020-06-14 14:33] LABS: Hepatitis B Surface Anti Res Negative; Hepatitis C Virus Antibody Negative (Negative)
[2020-06-14] MEDS: POTASSIUM CHLORIDE 20 MEQ TABLET 40 MEQ PO (17:11)
[2020-06-14] MEDS: ONDANSETRON INJ 4 MG/2 ML VIAL IV PUSH (21:30)
[2020-06-15] VITALS (16 sets, daily range): BP systolic 116–130; BP diastolic 61–83; PULSE 95–117; RESP 18–24; TEMP 36.4–37.1; O2SAT 90–100; BMI 32.3
[2020-06-15 05:03] LABS: Basophils Absolute Auto 0.1 K/mm3 (0.0-0.1); Basophils Percent Auto 0.3 % (0.2-1.2); Eosinophils Absolute Auto 0.4 K/mm3 (0-0.3); Hematocrit 35.8 % (37.0-47.0); Hemoglobin 12.1 g/dL (12.0-15.0); Immature Granulocyte Absolute 0.24 K/mm3 (0.00-0.031); Immature Granulocyte Percent A 1.3 % (0-0.5); Lymphocytes Percent Auto 5.3 % (18.3-44.2); Mean Corpuscular HGB Conc 33.8 g/dl (32-36); Mean Corpuscular Hemoglobin 31.5 pg (26-34); Mean Corpuscular Volume 93.2 fl (80-100); Mean Platelet Volume 8.7 fl (7.4-10.4); Monocytes Absolute Auto 0.2 K/mm3 (0.1-0.6); Monocytes Percent Auto 0.9 % (2.6-8.5); Neutrophils Absolute Auto 17.1 K/mm3 (1.3-6.7); Neutrophils Percent Auto 90.2 % (45.5-73.1); Platelet Count Result 537 k/mm3 (150-375); Red Blood Count 3.84 M/mm3 (4.2-5.4); Red Cell Distribution Width 11.9 % (11.5-14.5); White Blood Count 18.9 K/mm3 (4.5-10.0)
[2020-06-15 05:27] LABS: Alanine Aminotransferase 111 U/L (4-35); Albumin Level 3.1 g/dL (3.5-5.1); Alkaline Phosphatase 144 U/L (38-126); Anion Gap 4 mmol/L (8-16); Aspartate Amino Transferase 126 U/L (14-36); Bilirubin,Total 0.8 mg/dL (0.2-1.3); Blood Urea Nitrogen 12 mg/dL (7-17); Calcium 8.5 mg/dL (8.4-10.2); Carbon Dioxide 35 mmol/L (22-30); Chloride 93 mmol/L (98-107); Estimated CRCL calculation 104 ml/min; Estimated Glomerular Filt Rate > 60; Glucose 139 mg/dL (65-105); Lactate Dehydrogenase 1590 U/L (313-618); Magnesium 2.4 mg/dL (1.6-2.3); Potassium 3.5 mmol/L (3.4-5.0); Sodium 132 mmol/L (137-145)
[2020-06-15 06:14] LABS: CRP 35.2 mg/dL (<1.0)
[2020-06-15] MEDS: ONDANSETRON INJ 4 MG/2 ML VIAL IV PUSH (07:29)
[2020-06-15] MEDS: DEXAMETHASONE 2 MG TABLET 6 MG PO (08:54)
[2020-06-15] MEDS: guaiFENesin 12 HR 600 MG TABCR PO ×2 (08:55→20:15)
[2020-06-15] MEDS: PANTOPRAZOLE 40 MG TABLET PO (08:55)
[2020-06-15] MEDS: ENOXAPARIN 100 MG/ML SYRINGE 90 MG SUB-Q ×2 (08:55→20:15)
--- NOTE | 2020-06-15 14:13 | PCNSR ---
On 06/15/20, the student, Maggie Huang, provided care and [facility]. I have reviewed the student's documentation and agree with the findings.
--- NOTE | 2020-06-15 16:45 | PM.IMPN ---
Progress Note: A&P Assessment and Plan (1) Sepsis: Code(s): A41.9 - Sepsis, unspecified organism Status: Acute Assessment and Plan: The patient meets criteria for sepsis with fever, leukocytosis, tachycardia, and acute respiratory failure with hypoxia secondary to underlying pneumonia. Lactic acid level is within normal limits. WBC back up but could be from steroids. Blood cultures NGTD. Continue IV abx. (2) Acute respiratory failure with hypoxia: Code(s): J96.01 - Acute respiratory failure with hypoxia Status: Acute Assessment and Plan: The patient was hypoxic on admission and now at 60L/min high-flow. SARS2-CoV-2 test was negative 06/11 and again 06/12. Still with strong suspicion so will repeat a 3rd time. Consider also bacterial PNA with possibly underlying lung issue (A1AT deficiency?). She received a dose of dexamethasone in the ED 06/11 and this will be continued. Continue abx for bacterial PNA. Mucinex for cough. (3) Bilateral pneumonia: Code(s): J18.9 - Pneumonia, unspecified organism Status: Acute Assessment and Plan: WBC elevated to 18.9K and with fevers. Chest CT showing bilateral airspace disease mostly posterior and lower. Sputum to be sent for culture. Legionella, strep pneumoniae, and mycoplasma serologies sent as well. Procalcitonin level pending. Fevers waning but WBC up (could be from steroids). SARS2-CoV2 negative x2. Continue IV abx. (4) Person under investigation for COVID-19: Code(s): Z20.822 - Contact with and (suspected) exposure to COVID-19 Status: Acute Assessment and Plan: As above. Patient tested negative on 06/11 and again 06/12. Still with concern for COVID. Repeat a 3rd time before stopping isolation. Increase activity. Have patient lie prone as she toelrates. (5) Pulmonary embolism: Qualifiers: Acute cor pulmonale presence: without acute cor pulmonale Chronicity: acute Pulmonary embolism type: unspecified Qualified Code(s): I26.99 - Other pulmonary embolism without acute cor pulmonale Code(s): I26.99 - Other pulmonary embolism without acute cor pulmonale Status: Acute Assessment and Plan: Chest CTA showing a small pulmonary emboli in the lingula. She was started on Lovenox therapeutic dose. LE venous dopplers negative. Check Echo. (6) Hepatic steatosis: Code(s): K76.0 - Fatty (change of) liver, not elsewhere classified Status: Acute Assessment and Plan: LFTs were previously elevated an outpatient. She states she was diagnosed with hepatic steatosis when she went to the ED in [place]. She has not had any further workup in this regard. LFTs have been up and down since admission related to underlying infection/sepsis. Hep profile neg, Fe studies ok/ . Preg test negative. Continue to follow. Subjective Date/time seen: 06/15/20 16:45 Interval history: Date of service 06/15 24-year-old female with hepatic steatosis here for cough, shortness of and weakness found to have pneumonia with sepsis. Feels better but still SOB. No CP. Has some diarrhea. Eating better. Exam Narrative: Exam Narrative: afebrile last 48hrs 37.2 128/76 100 22 95% HFNC 45 FR/60% Gen - NARD Chest - distant BS CV -tachycardic, regular. Telemetry showing sinus tachycardia Abd - Soft, NT/ND, Positive BS Ext - No pedal edema Psych - nml mood and affect Skin - Warm and dry Objective Data Vital Signs Vital Signs: Vital Signs - 24 hr 06/14/20 18:00 06/14/20 20:00 06/14/20 22:00 Temperature 36.6 C Pulse Rate 100 99 113 H Respiratory Rate 24 H Blood Pressure 145/79 H Pulse Oximetry 97 06/14/20 22:40 06/14/20 23:18 06/15/20 00:00 Temperature 36.4 C Pulse Rate 115 H 103 H Respiratory Rate 22 H Blood Pressure 113/61 Pulse Oximetry 100 99 97 06/15/20 02:00 06/15/20 04:00 06/15/20 06:00 Temperature 36.7 C Pulse Rat
[2020-06-15 17:10] LABS: Vancomycin Trough 7.6 ug/mL (10.0-20.0)
[2020-06-15 18:13] LABS: SARS-CoV-2 RNA PCR Negative
[2020-06-15 19:25] LABS: Legionella pneumophila Ag Ur Not Detected (Not Detected); Pneumococcal Antigen Urine Not Detected (Not Detected)
[2020-06-16] VITALS (17 sets, daily range): BP systolic 110–135; BP diastolic 61–76; PULSE 93–115; RESP 18–26; TEMP 36.1–36.8; O2SAT 93–99
--- NOTE | 2020-06-16 | ECHO_ITS ---
Patient Info Name: Mary Reina Age: 24 years : 1995 Gender: Female Ht: 65 in Wt: 187 lbs BSA: 2.00 m2 HR: 102 bpm BP: 118 / 68 mmHg Technical Quality: Good Exam Date: 06/16/2020 11:20 AM Exam Location: [facility] Pul[facility] Exam Room: [facility] Patient Status: Inpatient Admit Date: 06/11/2020 Staff Ordering Physician: Abhi Miranda MD Environmental Compliance Engineer: Renee James RDCS Attending Provider: Abhi Miranda MD Exam Type: CA echo doppler color flow Study Info Indications - RESP FAILURE SEPSIS SOB Complete two-dimentional, color flow and Doppler transthoracic echocardiogram is performed with agitated saline and with contrast to opacify the left ventricle and to improve the delineation of the left ventricle endocardial borders. Complete two-dimensional, color flow and Doppler transthoracic echocardiogram is performed. Summary 1. Complete two-dimensional, color flow and Doppler transthoracic echocardiogram is performed. 2. Left ventricular chamber dimension is normal. 3. Left ventricular systolic function is normal, estimated at 60-65%. 4. The left ventricular diastolic function is grade II diastolic dysfunction. 5. No pulmonary hypertension, estimated pulmonary arterial systolic pressure is 22 mmHg. Left Ventricle Tissue doppler is not performed. Left ventricular chamber dimension is normal. Left ventricular systolic function is normal, estimated at 60-65%. The left ventricular diastolic function is grade II diastolic dysfunction. Right Ventricle Right ventricular chamber dimension is normal. Right ventricular systolic function is normal. Left Atria Left atrial chamber dimension is normal. Right Atria Right atrial chamber dimension is normal. Aortic Valve The aortic valve is trileaflet. There is no aortic valve stenosis. There is no aortic valve regurgitation. Pulmonic Valve There is no pulmonic regurgitation. Mitral Valve There is no mitral valve stenosis. There is no mitral valve regurgitation. Tricuspid Valve There is no tricuspid valve regurgitation. No pulmonary hypertension, estimated pulmonary arterial systolic pressure is 22 mmHg. Pericardium/Pleural There is no pericardial effusion. Inferior Vena Cava Normal inferior vena cava with >50% collapse upon inspiration consistent with normal right atrial pressure, 5 mmHg. Aorta The aortic root size at the sinus of Valsalva is normal. Left Ventricular Outflow Tract Name Value Normal LVOT 2D LVOT Diameter 2.0 cm LVOT Doppler LVOT Peak Gradient 3 mmHg LVOT Mean Gradient 2 mmHg LVOT VTI 14 cm LVOT VTI/AV VTI Ratio 0.7 LVOT Stroke Volume 44 ml LVOT CO 12.3 l/min LVOT CI 6.1 l/min/m2 Pulmonic Valve Name Value Normal
[2020-06-16 08:10] LABS: Basophils Absolute Auto 0.1 K/mm3 (0.0-0.1); Basophils Percent Auto 0.3 % (0.2-1.2); Eosinophils Absolute Auto 0.5 K/mm3 (0-0.3); Eosinophils Percent Auto 2.8 % (0-4.4); Hematocrit 37.7 % (37.0-47.0); Hemoglobin 13.1 g/dL (12.0-15.0); Immature Granulocyte Absolute 0.24 K/mm3 (0.00-0.031); Immature Granulocyte Percent A 1.2 % (0-0.5); Lymphocytes Absolute Auto 0.96 K/mm3 (0.9-3.2); Lymphocytes Percent Auto 4.9 % (18.3-44.2); Mean Corpuscular HGB Conc 34.7 g/dl (32-36); Mean Corpuscular Hemoglobin 32.6 pg (26-34); Mean Corpuscular Volume 93.8 fl (80-100); Mean Platelet Volume 8.5 fl (7.4-10.4); Monocytes Absolute Auto 0.2 K/mm3 (0.1-0.6); Monocytes Percent Auto 0.9 % (2.6-8.5); Neutrophils Absolute Auto 17.6 K/mm3 (1.3-6.7); Neutrophils Percent Auto 89.9 % (45.5-73.1); Platelet Count Result 567 k/mm3 (150-375); Red Blood Count 4.02 M/mm3 (4.2-5.4); Red Cell Distribution Width 12.1 % (11.5-14.5); White Blood Count 19.6 K/mm3 (4.5-10.0)
[2020-06-16 08:25] LABS: Anion Gap 6 mmol/L (8-16); Blood Urea Nitrogen 13 mg/dL (7-17); Calcium 8.1 mg/dL (8.4-10.2); Carbon Dioxide 36 mmol/L (22-30); Chloride 90 mmol/L (98-107); Estimated CRCL calculation 104 ml/min; Estimated Glomerular Filt Rate > 60; Glucose 113 mg/dL (65-105); Potassium 3.9 mmol/L (3.4-5.0); Sodium 132 mmol/L (137-145)
[2020-06-16] MEDS: ENOXAPARIN 100 MG/ML SYRINGE 90 MG SUB-Q ×2 (09:37→20:26)
[2020-06-16] MEDS: DEXAMETHASONE 2 MG TABLET 6 MG PO (09:37)
[2020-06-16] MEDS: PANTOPRAZOLE 40 MG TABLET PO (09:37)
[2020-06-16] MEDS: guaiFENesin 12 HR 600 MG TABCR PO ×2 (09:37→20:26)
[2020-06-16 11:10] LABS: Hepatitis C Viral RNA PCR <15 IU/mL
--- NOTE | 2020-06-16 15:51 | PM.IMPN ---
Progress Note: A&P Assessment and Plan (1) Sepsis: Code(s): A41.9 - Sepsis, unspecified organism Status: Acute Assessment and Plan: The patient meets criteria for sepsis with fever, leukocytosis, tachycardia, and acute respiratory failure with hypoxia secondary to underlying pneumonia. Lactic acid level is within normal limits. WBC back up but could be from steroids. Blood cultures NGTD. Continue IV abx. D#5 (2) Acute respiratory failure with hypoxia: Code(s): J96.01 - Acute respiratory failure with hypoxia Status: Acute Assessment and Plan: The patient was hypoxic on admission and now at 60L/min high-flow. SARS2-CoV-2 test was negative 06/11 and again 06/12. Still with strong suspicion so will repeat a 3rd time. Consider also bacterial PNA with possibly underlying lung issue (A1AT deficiency?). She received a dose of dexamethasone in the ED 1 and this will be continued. Continue abx for bacterial PNA. Mucinex for cough. (3) Bilateral pneumonia: Code(s): J18.9 - Pneumonia, unspecified organism Status: Acute Assessment and Plan: WBC elevated to 18.9K and with fevers. Chest CT showing bilateral airspace disease mostly posterior and lower. Legionella, strep pneumoniae, and mycoplasma serologies sent as well. Procalcitonin level pending. Fevers down but WBC up (could be from steroids). SARS2-CoV2 negative x2. Continue IV abx. D#5 (4) Person under investigation for COVID-19: Code(s): Z20.822 - Contact with and (suspected) exposure to COVID-19 Status: Acute Assessment and Plan: As above. Patient tested negative times 3! Increase activity. . (5) Pulmonary embolism: Qualifiers: Acute cor pulmonale presence: without acute cor pulmonale Chronicity: acute Pulmonary embolism type: unspecified Qualified Code(s): I26.99 - Other pulmonary embolism without acute cor pulmonale Code(s): I26.99 - Other pulmonary embolism without acute cor pulmonale Status: Acute Assessment and Plan: Chest CTA showing a small pulmonary emboli in the lingula. She was started on Lovenox therapeutic dose. LE venous dopplers negative. Echo 60-65% with no pul HTN (6) Hepatic steatosis: Code(s): K76.0 - Fatty (change of) liver, not elsewhere classified Status: Acute Assessment and Plan: LFTs were previously elevated an outpatient. She states she was diagnosed with hepatic steatosis when she went to the ED in [place]. LFTs have been up and down since admission related to underlying infection/sepsis. Hep profile neg, Fe studies ok/ . Preg test negative. Continue to follow. Subjective Date/time seen: 06/16/20 15:51 Interval history: Date of service 06/16 24-year-old female with hepatic steatosis here for cough, shortness of and weakness found to have pneumonia with sepsis. Feels better but still SOB. No CP. No diarrhea today. Eating better. Exam Narrative: Exam Narrative: afebrile 37.0 126/70 110 22 95% HFNC 45 FR/50% Gen - NARD Chest - distant BS but taking deeper breaths CV -tachycardic, regular. Telemetry showing sinus tachycardia Abd - Soft, NT/ND, Positive BS Ext - No pedal edema Psych - nml mood and affect Skin - Warm and dry Objective Data Vital Signs Vital Signs: Vital Signs - 24 hr 06/15/20 16:00 06/15/20 18:00 06/15/20 20:00 Temperature 36.6 C 36.7 C Pulse Rate 114 H 109 H 101 H Respiratory Rate 18 20 Blood Pressure 116/74 117/66 Pulse Oximetry 95 100 06/15/20 22:00 06/15/20 22:50 06/15/20 23:59 Temperature 36.7 C Pulse Rate 111 H 99 102 H Respiratory Rate 20 20 Blood Pressure 130/61 Pulse Oximetry 95 99 06/16/20 00:00 06/16/20 02:00 06/16/20 04:00 Temperature 36.6 C Pulse Rate 94 98 110 H Respiratory Rate 20 20 Blood Pressure 110/61 Pulse Oximetry 99 97 06/16/20 06:00 06/16/20 08:00 06/16/20 10:00 Temperature 36.
[2020-06-16 17:45] LABS: Hepatitis B Core Ab Total Nonreactive (Nonreactive)
[2020-06-16 21:56] LABS: Actin Antibody (IgG) <20 U (<20)
[2020-06-17] VITALS (9 sets, daily range): BP systolic 104–123; BP diastolic 58–69; PULSE 90–117; RESP 20–22; TEMP 36.7–37.1; O2SAT 90–99
[2020-06-17 05:02] LABS: Basophils Percent Auto 0.3 % (0.2-1.2); Eosinophils Absolute Auto 0.5 K/mm3 (0-0.3); Eosinophils Percent Auto 3.5 % (0-4.4); Hematocrit 34.4 % (37.0-47.0); Hemoglobin 11.8 g/dL (12.0-15.0); Immature Granulocyte Absolute 0.23 K/mm3 (0.00-0.031); Immature Granulocyte Percent A 1.5 % (0-0.5); Lymphocytes Absolute Auto 1.07 K/mm3 (0.9-3.2); Mean Corpuscular HGB Conc 34.3 g/dl (32-36); Mean Corpuscular Hemoglobin 31.7 pg (26-34); Mean Corpuscular Volume 92.5 fl (80-100); Mean Platelet Volume 8.7 fl (7.4-10.4); Monocytes Absolute Auto 0.1 K/mm3 (0.1-0.6); Monocytes Percent Auto 0.9 % (2.6-8.5); Neutrophils Absolute Auto 13.2 K/mm3 (1.3-6.7); Neutrophils Percent Auto 86.8 % (45.5-73.1); Platelet Count Result 587 k/mm3 (150-375); Red Blood Count 3.72 M/mm3 (4.2-5.4); Red Cell Distribution Width 11.9 % (11.5-14.5); White Blood Count 15.2 K/mm3 (4.5-10.0)
[2020-06-17 05:43] LABS: Alanine Aminotransferase 116 U/L (4-35); Albumin Level 2.9 g/dL (3.5-5.1); Alkaline Phosphatase 129 U/L (38-126); Anion Gap 0 mmol/L (8-16); Aspartate Amino Transferase 231 U/L (14-36); Bilirubin,Total 0.5 mg/dL (0.2-1.3); Blood Urea Nitrogen 12 mg/dL (7-17); Calcium 8.2 mg/dL (8.4-10.2); Carbon Dioxide 37 mmol/L (22-30); Chloride 92 mmol/L (98-107); Estimated CRCL calculation 104 ml/min; Estimated Glomerular Filt Rate > 60; Glucose 151 mg/dL (65-105); Magnesium 2.6 mg/dL (1.6-2.3); Phosphorus 3.6 mg/dL (2.5-4.5); Potassium 3.2 mmol/L (3.4-5.0); Sodium 129 mmol/L (137-145)
[2020-06-17 07:47] LABS: Mitochondrial (M2) Ab (IgG) <=20.0 U (<=20.0)
[2020-06-17] MEDS: POTASSIUM CHLORIDE 20 MEQ TABLET 40 MEQ PO ×2 (07:49→17:40)
[2020-06-17] MEDS: DEXAMETHASONE 2 MG TABLET 6 MG PO (10:23)
[2020-06-17] MEDS: ENOXAPARIN 100 MG/ML SYRINGE 90 MG SUB-Q ×2 (10:23→21:39)
[2020-06-17] MEDS: guaiFENesin 12 HR 600 MG TABCR PO ×2 (10:24→21:39)
[2020-06-17] MEDS: PANTOPRAZOLE 40 MG TABLET PO (10:24)
--- NOTE | 2020-06-17 11:47 | PC.NURSE ---
This patient, Mary Reina, was transferred to [[id number]] on 06/17/20 at 1133. Personal belongings sent with patient. Report given to [MARK Mcfarland]. Appropriate documentation sent with patient.
--- NOTE | 2020-06-17 11:49 | PC.NURSE ---
Patient arrived in [facility] @1135 this morning. Patient A&OX3, on 3L O2, states feeling much better.
--- NOTE | 2020-06-17 16:53 | PM.IMPN ---
Progress Note: A&P Assessment and Plan (1) Sepsis: Code(s): A41.9 - Sepsis, unspecified organism Status: Acute Assessment and Plan: The patient meets criteria for sepsis with fever, leukocytosis, tachycardia, and acute respiratory failure with hypoxia secondary to underlying pneumonia. Lactic acid level is within normal limits. WBC falling . Blood cultures NGTD. Continue IV abx. D#6 (2) Acute respiratory failure with hypoxia: Code(s): J96.01 - Acute respiratory failure with hypoxia Status: Acute Assessment and Plan: The patient was hypoxic on admission and now at 3L/min 45%. SARS2-CoV-2 x 3. . . . She received a dose of dexamethasone in the ED 06/11 and this was continued. Continue abx for bacterial PNA. Mucinex for cough. (3) Bilateral pneumonia: Code(s): J18.9 - Pneumonia, unspecified organism Status: Acute Assessment and Plan: WBC was elevated to 18.9K and with fevers. Chest CT showing bilateral airspace disease mostly posterior and lower. Legionella, strep pneumoniae, antigens negative and mycoplasma + but IGg . Procalcitonin level pending. Fevers down and wbc falling despite steroids. SARS2-CoV2 negative x3. Continue IV abx. D#6 (4) Person under investigation for COVID-19: Code(s): Z20.822 - Contact with and (suspected) exposure to COVID-19 Status: Acute Assessment and Plan: As above. Patient tested negative times 3! Increase activity. . (5) Pulmonary embolism: Qualifiers: Acute cor pulmonale presence: without acute cor pulmonale Chronicity: acute Pulmonary embolism type: unspecified Qualified Code(s): I26.99 - Other pulmonary embolism without acute cor pulmonale Code(s): I26.99 - Other pulmonary embolism without acute cor pulmonale Status: Acute Assessment and Plan: Chest CTA showing a small pulmonary emboli in the lingula. She was started on Lovenox therapeutic dose. LE venous dopplers negative. Echo 60-65% with no pul HTN may repeat before d/c to determine if want to continue anticoagulation (6) Hepatic steatosis: Code(s): K76.0 - Fatty (change of) liver, not elsewhere classified Status: Acute Assessment and Plan: LFTs were previously elevated an outpatient. She states she was diagnosed with hepatic steatosis when she went to the ED in [place]. LFTs have been up and down since admission related to underlying infection/sepsis. Hep profile neg, Fe studies ok/ . Preg test negative. Continue to follow. Subjective Date/time seen: 06/17/20 16:53 Interval history: Date of service 06/17 24-year-old female with hepatic steatosis here for cough, shortness of and weakness found to have pneumonia with sepsis. Feels better each day and less sob. No CP. No diarrhea today. Eating better. Exam Narrative: Exam Narrative: afebrile 37.0 104/58 100 20 95% HFNC 3 FR/45% Gen - NARD Chest - distant BS but taking deeper breaths CV -tachycardic, regular. Abd - Soft, NT/ND, Positive BS Ext - No pedal edema Psych - nml mood and affect Skin - Warm and dry Objective Data Vital Signs Vital Signs: Vital Signs - 24 hr 06/16/20 18:00 06/16/20 19:16 06/16/20 20:00 Temperature 36.2 C L Pulse Rate 96 97 106 H Respiratory Rate 22 H Blood Pressure 120/71 Pulse Oximetry 94 97 06/16/20 22:00 06/16/20 22:07 06/16/20 23:43 Temperature 36.8 C Pulse Rate 93 99 98 Respiratory Rate 20 Blood Pressure 115/61 Pulse Oximetry 97 96 06/17/20 00:00 06/17/20 02:00 06/17/20 04:00 Temperature 36.9 C Pulse Rate 94 117 H 98 Respiratory Rate 22 H Blood Pressure 123/69 Pulse Oximetry 96 96 06/17/20 06:00 06/17/20 08:00 06/17/20 10:00 Temperature 36.7 C Pulse Rate 90 101 H 103 H Respiratory Rate 20 Blood Pressure 104/58 L Pulse Oximetry 93 Intake/Output Intake/Output: Intake & Output 06/14/20 06/15/20
[2020-06-18] VITALS (12 sets, daily range): BP systolic 114–130; BP diastolic 62–78; PULSE 94–112; RESP 16–20; TEMP 36.3–36.6; O2SAT 86–96
[2020-06-18 06:14] LABS: Basophils Absolute Auto 0.1 K/mm3 (0.0-0.1); Basophils Percent Auto 0.6 % (0.2-1.2); Eosinophils Absolute Auto 0.1 K/mm3 (0-0.3); Eosinophils Percent Auto 0.8 % (0-4.4); Hematocrit 36.2 % (37.0-47.0); Hemoglobin 12.3 g/dL (12.0-15.0); Immature Granulocyte Absolute 0.31 K/mm3 (0.00-0.031); Lymphocytes Absolute Auto 1.41 K/mm3 (0.9-3.2); Lymphocytes Percent Auto 9.1 % (18.3-44.2); Mean Corpuscular Hemoglobin 31.5 pg (26-34); Mean Corpuscular Volume 92.8 fl (80-100); Mean Platelet Volume 8.5 fl (7.4-10.4); Monocytes Absolute Auto 0.2 K/mm3 (0.1-0.6); Neutrophils Absolute Auto 13.3 K/mm3 (1.3-6.7); Neutrophils Percent Auto 86.5 % (45.5-73.1); Platelet Count Result 657 k/mm3 (150-375); Red Cell Distribution Width 11.9 % (11.5-14.5); White Blood Count 15.4 K/mm3 (4.5-10.0)
[2020-06-18 06:20] LABS: Anion Gap 3 mmol/L (8-16); Blood Urea Nitrogen 12 mg/dL (7-17); Calcium 8.5 mg/dL (8.4-10.2); Carbon Dioxide 32 mmol/L (22-30); Chloride 96 mmol/L (98-107); Estimated CRCL calculation 104 ml/min; Estimated Glomerular Filt Rate > 60; Glucose 118 mg/dL (65-105); Potassium 3.6 mmol/L (3.4-5.0); Sodium 131 mmol/L (137-145)
[2020-06-18] MEDS: ENOXAPARIN 100 MG/ML SYRINGE 90 MG SUB-Q (08:12)
[2020-06-18] MEDS: guaiFENesin 12 HR 600 MG TABCR PO ×2 (08:12→21:47)
[2020-06-18] MEDS: DEXAMETHASONE 2 MG TABLET 6 MG PO (08:12)
[2020-06-18] MEDS: PANTOPRAZOLE 40 MG TABLET PO (08:12)
--- NOTE | 2020-06-18 10:45 | PCNFU ---
Nutrition Follow-Up Complete: Inadequate energy intake related to poor appetite as evidenced by refusing to eat meals. Goal: Increase caloric intake with consumption of 50% of meals/supplements or greater. Patient is meeting current goal. No new goal at this time. Pt current nutrition is a regular diet with ensure compacts BID providing an additional 220 calories and 9 grams of protein as well as a frozen nutritional treat providing an additional 300 calories and 9 grams of protein. Last recorded weight is 85.1 kg. Bowel Motility: +BM 06/17 Labs Reviewed: Hct 36.2, Na 131, Glu 118 Meds Noted: zithromax, lovenox, zofran, protonix, vancomycin Additional Notes: Followed up with patient today. Patient said she has a good appetite and loves the food. However, she does not like the frozen nutritional treat and would prefer to be sent chocolate ensures TID instead. Monitor patient labs, medications, weight, and oral intake every 5 days.
--- NOTE | 2020-06-18 11:10 | PCNSR ---
On 06/18/20, the student, Maggie Huang, provided care and completed [facility] documentation on this patient. I have reviewed the student's documentation and agree with the findings.
--- NOTE | 2020-06-18 13:39 | PC.NURSE ---
to CT per wheelchair. on 4 L O2 per NC
--- NOTE | 2020-06-18 13:44 | PC.NURSE ---
patient returning to room from CT.
--- NOTE | 2020-06-18 17:48 | PM.IMPN ---
Progress Note: A&P Assessment and Plan (1) Sepsis: Code(s): A41.9 - Sepsis, unspecified organism Status: Acute Assessment and Plan: The patient meets criteria for sepsis with fever, leukocytosis, tachycardia, and acute respiratory failure with hypoxia secondary to underlying pneumonia. Lactic acid level is within normal limits. WBC stable to declining . Blood cultures NGTD. Continue IV abx. D#7 (2) Acute respiratory failure with hypoxia: Code(s): J96.01 - Acute respiratory failure with hypoxia Status: Acute Assessment and Plan: The patient was hypoxic on admission and now at 3L/min 45%. SARS2-CoV-2 x 3. . . . She received a dose of dexamethasone in the ED 06/11 and this was continued but will d/c with no bronchospasm. Continue abx for bacterial PNA. Mucinex for cough. (3) Bilateral pneumonia: Code(s): J18.9 - Pneumonia, unspecified organism Status: Acute Assessment and Plan: WBC was elevated to 18.9K and with fevers. Chest CT showing bilateral airspace disease mostly posterior and lower. Legionella, strep pneumoniae, antigens negative and mycoplasma + but IGg . Procalcitonin level pending. Fevers down and wbc falling despite steroids. SARS2-CoV2 negative x3. Continue IV abx. D#7 (4) Person under investigation for COVID-19: Code(s): Z20.822 - Contact with and (suspected) exposure to COVID-19 Status: Acute Assessment and Plan: As above. Patient tested negative times 3! Increase activity. . (5) Pulmonary embolism: Qualifiers: Acute cor pulmonale presence: without acute cor pulmonale Chronicity: acute Pulmonary embolism type: unspecified Qualified Code(s): I26.99 - Other pulmonary embolism without acute cor pulmonale Code(s): I26.99 - Other pulmonary embolism without acute cor pulmonale Status: Acute Assessment and Plan: Chest CTA showing a small pulmonary emboli in the lingula. She was started on Lovenox therapeutic dose. LE venous dopplers negative. Echo 60-65% with no pul HTN repeat CTA today no emboli, d/c full dose lovenox (6) Hepatic steatosis: Code(s): K76.0 - Fatty (change of) liver, not elsewhere classified Status: Acute Assessment and Plan: LFTs were previously elevated an outpatient. She states she was diagnosed with hepatic steatosis when she went to the ED in [place]. LFTs have been up and down since admission related to underlying infection/sepsis. Hep profile neg, Fe studies ok/ . Preg test negative. Continue to follow. Subjective Date/time seen: 06/18/20 17:48 Interval history: Date of service 06/18 24-year-old female with hepatic steatosis here for cough, shortness of and weakness found to have pneumonia with sepsis. Feels better each day and less sob. No CP. No diarrhea today. Eating better. Exam Narrative: Exam Narrative: afebrile 37.0 130/78 100 18 95% HFNC 3 FR/45% Gen - NARD Chest - distant BS but taking deeper breaths CV -tachycardic, regular. Abd - Soft, NT/ND, Positive BS Ext - No pedal edema Psych - nml mood and affect Skin - Warm and dry Objective Data Vital Signs Vital Signs: Vital Signs - 24 hr 06/17/20 20:00 06/17/20 22:00 06/17/20 22:30 Temperature 37.1 C Pulse Rate 104 H 96 Respiratory Rate 20 Blood Pressure 111/69 Pulse Oximetry 99 90 99 06/18/20 06:00 06/18/20 07:50 06/18/20 08:00 Temperature 36.6 C 36.6 C Pulse Rate 102 H 94 112 H Respiratory Rate 20 20 Blood Pressure 126/77 130/72 Pulse Oximetry 92 95 91 06/18/20 10:45 06/18/20 10:54 06/18/20 13:45 Temperature Pulse Rate Respiratory Rate Blood Pressure Pulse Oximetry 86 L 91 90 06/18/20 15:51 06/18/20 16:00 06/18/20 16:47 Temperature 36.3 C L Pulse Rate 109 H Respiratory Rate 18 Blood Pressure 129/78 Pulse Oximetry 94 90 95 Intake/Output Intake/Output: Intake & Output 01
[2020-06-19] VITALS (15 sets, daily range): BP systolic 116–129; BP diastolic 63–72; PULSE 95–125; RESP 16–20; TEMP 36.2–36.7; O2SAT 68–97
[2020-06-19 06:07] LABS: Basophils Absolute Auto 0.1 K/mm3 (0.0-0.1); Basophils Percent Auto 0.4 % (0.2-1.2); Eosinophils Absolute Auto 0.1 K/mm3 (0-0.3); Eosinophils Percent Auto 0.7 % (0-4.4); Hematocrit 35.6 % (37.0-47.0); Hemoglobin 12.1 g/dL (12.0-15.0); Immature Granulocyte Absolute 0.32 K/mm3 (0.00-0.031); Immature Granulocyte Percent A 1.8 % (0-0.5); Lymphocytes Absolute Auto 1.25 K/mm3 (0.9-3.2); Mean Corpuscular Hemoglobin 31.6 pg (26-34); Mean Platelet Volume 8.4 fl (7.4-10.4); Monocytes Absolute Auto 0.2 K/mm3 (0.1-0.6); Monocytes Percent Auto 0.9 % (2.6-8.5); Neutrophils Percent Auto 89.2 % (45.5-73.1); Platelet Count Result 707 k/mm3 (150-375); Red Blood Count 3.83 M/mm3 (4.2-5.4); Red Cell Distribution Width 12.1 % (11.5-14.5)
[2020-06-19 06:22] LABS: Alanine Aminotransferase 132 U/L (4-35); Albumin Level 2.9 g/dL (3.5-5.1); Alkaline Phosphatase 126 U/L (38-126); Anion Gap 3 mmol/L (8-16); Aspartate Amino Transferase 196 U/L (14-36); Bilirubin,Total 0.5 mg/dL (0.2-1.3); Blood Urea Nitrogen 11 mg/dL (7-17); Calcium 8.3 mg/dL (8.4-10.2); Carbon Dioxide 29 mmol/L (22-30); Chloride 97 mmol/L (98-107); Estimated CRCL calculation 103 ml/min; Estimated Glomerular Filt Rate > 60; Glucose 125 mg/dL (65-105); Potassium 3.8 mmol/L (3.4-5.0); Sodium 129 mmol/L (137-145)
[2020-06-19] MEDS: PANTOPRAZOLE 40 MG TABLET PO (08:52)
[2020-06-19] MEDS: guaiFENesin 12 HR 600 MG TABCR PO ×2 (08:52→20:35)
[2020-06-19] MEDS: ENOXAPARIN 40 MG/0.4 ML SYRINGE SUB-Q (10:09)
[2020-06-19 11:31] LABS: Ceruloplasmin 47 mg/dL (18-53)
--- NOTE | 2020-06-19 14:47 | PM.IMPN ---
Progress Note: A&P Assessment and Plan (1) Sepsis: Code(s): A41.9 - Sepsis, unspecified organism Status: Acute Assessment and Plan: The patient meets criteria for sepsis with fever, leukocytosis, tachycardia, and acute respiratory failure with hypoxia secondary to underlying pneumonia. Lactic acid level was within normal limits. WBC stable to declining . Blood cultures NGTD. Continue IV abx. D#8 (2) Acute respiratory failure with hypoxia: Code(s): J96.01 - Acute respiratory failure with hypoxia Status: Acute Assessment and Plan: The patient was hypoxic on admission and now at 3L/min 45%. SARS2-CoV-2 x 3. . . . She received a dose of dexamethasone in the ED 06/11 and this was continued but d/lyn with no bronchospasm. Continue abx for bacterial PNA. Mucinex for cough. Pulmonary opinion with persistent hypoxia (3) Bilateral pneumonia: Code(s): J18.9 - Pneumonia, unspecified organism Status: Acute Assessment and Plan: WBC was elevated to 18.9K and with fevers. Chest CT showing bilateral airspace disease mostly posterior and lower. Legionella, strep pneumoniae, antigens negative and mycoplasma + but IGg . Procalcitonin level pending. Fevers down and wbc falling. SARS2-CoV2 negative x3. Continue IV abx. D#8 Pulmonary opinion with persistent infiltrates (4) Person under investigation for COVID-19: Code(s): Z20.822 - Contact with and (suspected) exposure to COVID-19 Status: Acute Assessment and Plan: As above. Patient tested negative times 3! Increase activity. . (5) Pulmonary embolism: Qualifiers: Acute cor pulmonale presence: without acute cor pulmonale Chronicity: acute Pulmonary embolism type: unspecified Qualified Code(s): I26.99 - Other pulmonary embolism without acute cor pulmonale Code(s): I26.99 - Other pulmonary embolism without acute cor pulmonale Status: Acute Assessment and Plan: Initial Chest CTA showing a small pulmonary emboli in the lingula. She was started on Lovenox therapeutic dose. LE venous dopplers negative. Echo 60-65% with no pul HTN repeat CTA 06/18 no emboli, d/c full dose lovenox (6) Hepatic steatosis: Code(s): K76.0 - Fatty (change of) liver, not elsewhere classified Status: Acute Assessment and Plan: LFTs were previously elevated an outpatient. She states she was diagnosed with hepatic steatosis when she went to the ED in [place]. LFTs have been up and down since admission related to underlying infection/sepsis. Hep profile neg, Fe studies ok/ . Preg test negative. Continue to follow. Subjective Date/time seen: 06/19/20 14:47 Interval history: Date of service 06/19 24-year-old female with hepatic steatosis here for cough, shortness of breath and weakness found to have pneumonia with sepsis. Feels better each day and less sob. No CP. No diarrhea today. Eating better. but still high 02 requirements Exam Narrative: Exam Narrative: afebrile 37.0 116/64 104 18 96% 6L NC Gen - NARD Chest - distant BS but taking deeper breaths, no rales CV -tachycardic, regular. Abd - Soft, NT/ND, Positive BS Ext - No pedal edema Psych - nml mood and affect Skin - Warm and dry Objective Data Vital Signs Vital Signs: Vital Signs - 24 hr 06/18/20 15:51 06/18/20 16:00 06/18/20 16:47 Temperature 36.3 C L Pulse Rate 109 H Respiratory Rate 18 Blood Pressure 129/78 Pulse Oximetry 94 90 95 06/18/20 18:33 06/18/20 20:00 06/18/20 22:00 Temperature 36.5 C Pulse Rate 98 Respiratory Rate 16 Blood Pressure 114/62 Pulse Oximetry 96 91 91 06/19/20 00:00 06/19/20 05:49 06/19/20 05:52 Temperature Pulse Rate Respiratory Rate Blood Pressure Pulse Oximetry 89 L 68 L 90 06/19/20 06:00 06/19/20 08:00 06/19/20 12:00 Temperature 36.7 C 36.2 C L 36.6 C Pulse Rate 120 H 95 113 H Respiratory
--- NOTE | 2020-06-19 15:21 | PM.CNPUL ---
Assessment and Plan Assessment and plan (1) Atypical pneumonia: Code(s): J18.9 - Pneumonia, unspecified organism Status: Acute Assessment and Plan: Eight atypical pneumonia which may be due to a virus or atypical mycobacteria such as mycoplasma. It is certainly conceivable that IgG positivity on the mycoplasma could occur weeks after her symptoms began. Other non COVID viruses may also be possible such as influenza. -will do an influenza a and B PCR -discontinue ceftriaxone, azithromycin, and vancomycin -we will start Levaquin 750 mg p.o. daily for 7 days -will start prednisone 40 mg daily for 7 days -would recommend keeping the patient in hospital for an additional 24-48 hours looking for further improvement in symptoms and further weaning of oxygenation prior to discharge. -she will need a repeat chest x-ray in approximately 6 weeks time as an outpatient. History of Present Illness History of Present Illness Consult date: 06/19/20 Chief complaint: pneumonia, pulmonary embolus, hypoxia Narrative: This is a very pleasant 24-year-old female who presented approximately a week ago to the hospital with flu-like symptoms including increased shortness of breath, nonproductive cough, fevers, chills, night sweats, body aches, diarrhea. Symptoms had started approximately 2 weeks prior to admission. She denies any COVID contacts. 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 She had 3-COVID PCR test. She was treated with dexamethasone as well as ceftriaxone, azithromycin and vancomycin. Although she is dramatically improved and has gone from high-flow oxygen to 4-6 L nasal cannula she has been slow to recover. She admits to vaping marijuana prior to her feeling ill and has been doing so for a long time. Of note positive mycoplasma IgG that is elevated. Review of Systems Review of Systems: All systems reviewed & are unremarkable except as noted in HPI and below PMFSH Past Medical History Medical History (Updated 06/19/20 @ 15:25 by Shelly Amaro MD) Anxiety Hepatic steatosis Surgical History Surgical History (Updated 06/11/20 @ 21:21 by Yamila Chery PA-C) No history of previous surgery Family History Family History Other No significant family history Social History Social History (Updated 06/11/20 @ 21:22 by Yamila Chery PA-C) Social History: The patient lives in [place] with her boyfriend. Lifelong nonsmoker. No illicit substance use. She used to drink about 3 alcoholic beverages a day but quit in the fall. She designates her dad Omid as her surrogate decision maker and she wishes to be a full code. Spiritual care concerns: No Meds Home Medications and Allergies Home Medications Medication Instructions Recorded Confirmed Type No Home Medications 06/11/20 06/11/20 History Allergies Allergy/AdvReac Type Severity Reaction Status Date / Time No Known Allergies Allergy Verified 06/11/20 08:30 Vital Signs Vital Signs - 24 hr 06/18/20 15:51 06/18/20 16:00 06/18/20 16:47 Temperature 36.3 C L Pulse Rate 109 H Respiratory Rate 18 Blood Pressure 129/78 Pulse Oximetry 94 90 95 06/18/20 18:33 06/18/20 20:00 06/18/20 22:00 Temperature 36.5 C Pulse Rate 98 Respiratory Rate 16 Blood Pressure 114/62 Pulse Oximetry 96 91 91 06/19/20 00:00 06/19/20 05:49 06/19/20 05:52 Temperature Pulse Rate Respiratory Rate Blood Pressure Pulse Oximetry 89 L 68 L 90 06/19/20 06:00 06/19/20 08:00 06/19/20 12:00 Temperature 36.7 C 36.2 C L 36.6 C Pulse Rate 120 H 95 113 H Respiratory Rate 20 18 18 Blood Pressure 117/63 126/69 116/63 Pulse Oximetry 91 94 96 06/19/20 14:00 06/19/20 14:02 Temperature Pulse Rate Respiratory Rate Blood Pressure Pulse Oximetry 96 97 Exam Narrative:
[2020-06-19] MEDS: predniSONE 20 MG TABLET 40 MG PO (16:26)
[2020-06-19 16:46] LABS: Influenza Control Positive
[2020-06-19] MEDS: WATER FOR IRRIGATION, STERILE 1,000 ML BOTTLE 1000 ML (19:52)
[2020-06-19] MEDS: ALBUTEROL SULFATE (*SP) AEROSOL 1 PUFF 2 PUFF INHALATION ×2 (20:33)
[2020-06-20] VITALS (12 sets, daily range): BP systolic 106–122; BP diastolic 60–72; PULSE 95–130; RESP 16–18; TEMP 36.1–36.6; O2SAT 92–98
[2020-06-20 06:08] LABS: Basophils Absolute Auto 0.1 K/mm3 (0.0-0.1); Basophils Percent Auto 0.3 % (0.2-1.2); Eosinophils Percent Auto 0.1 % (0-4.4); Hemoglobin 12.9 g/dL (12.0-15.0); Immature Granulocyte Percent A 1.7 % (0-0.5); Lymphocytes Absolute Auto 1.32 K/mm3 (0.9-3.2); Lymphocytes Percent Auto 7.5 % (18.3-44.2); Mean Corpuscular HGB Conc 33.9 g/dl (32-36); Mean Corpuscular Hemoglobin 32.2 pg (26-34); Mean Corpuscular Volume 94.8 fl (80-100); Mean Platelet Volume 8.3 fl (7.4-10.4); Monocytes Absolute Auto 0.2 K/mm3 (0.1-0.6); Monocytes Percent Auto 1.2 % (2.6-8.5); Neutrophils Absolute Auto 15.7 K/mm3 (1.3-6.7); Neutrophils Percent Auto 89.2 % (45.5-73.1); Platelet Count Result 658 k/mm3 (150-375); Red Blood Count 4.01 M/mm3 (4.2-5.4); Red Cell Distribution Width 12.2 % (11.5-14.5); White Blood Count 17.6 K/mm3 (4.5-10.0)
[2020-06-20 06:39] LABS: Alanine Aminotransferase 109 U/L (4-35); Albumin Level 3.2 g/dL (3.5-5.1); Alkaline Phosphatase 133 U/L (38-126); Anion Gap 2 mmol/L (8-16); Aspartate Amino Transferase 88 U/L (14-36); Bilirubin,Total 0.6 mg/dL (0.2-1.3); Blood Urea Nitrogen 13 mg/dL (7-17); Calcium 8.8 mg/dL (8.4-10.2); Carbon Dioxide 27 mmol/L (22-30); Chloride 101 mmol/L (98-107); Estimated CRCL calculation 116 ml/min; Estimated Glomerular Filt Rate > 60; Glucose 120 mg/dL (65-105); Potassium 4.7 mmol/L (3.4-5.0); Sodium 130 mmol/L (137-145)
[2020-06-20] MEDS: ALBUTEROL SULFATE (*SP) AEROSOL 1 PUFF 2 PUFF INHALATION (06:42)
[2020-06-20] MEDS: predniSONE 20 MG TABLET 40 MG PO (09:41)
[2020-06-20] MEDS: ENOXAPARIN 40 MG/0.4 ML SYRINGE SUB-Q (09:41)
[2020-06-20] MEDS: PANTOPRAZOLE 40 MG TABLET PO (09:42)
[2020-06-20] MEDS: guaiFENesin 12 HR 600 MG TABCR PO ×2 (09:42→20:23)
--- NOTE | 2020-06-20 14:22 | PM.IMPN ---
Progress Note: A&P Assessment and Plan (1) Sepsis: Code(s): A41.9 - Sepsis, unspecified organism Status: Acute Assessment and Plan: The patient met criteria for sepsis with fever, leukocytosis, tachycardia, and acute respiratory failure with hypoxia secondary to underlying pneumonia. Lactic acid level was within normal limits. WBC stable to declining until steroids restarted . Blood cultures NGTD. Had 8 days of IV antibiotics and Pul switched to levafloxacin po now (2) Acute respiratory failure with hypoxia: Code(s): J96.01 - Acute respiratory failure with hypoxia Status: Acute Assessment and Plan: The patient was hypoxic on admission and now at 2inc. SARS2-CoV-2 x 3. . . . She received a dose of dexamethasone in the ED 06/11 and this was continued but d/lyn 06/18 but Pul started prednisone 40 qd . Continue abx for bacterial PNA. Mucinex for cough. Pulmonary following now. (3) Bilateral pneumonia: Code(s): J18.9 - Pneumonia, unspecified organism Status: Acute Assessment and Plan: WBC was elevated to 18.9K and with fevers. Chest CT showing bilateral airspace disease mostly posterior and lower. Legionella, strep pneumoniae, antigens negative and mycoplasma + but IGg . Procalcitonin level pending. Fevers down and wbc falling. SARS2-CoV2 negative x3. As above received 8 days of IV antibiotics and change to p.o. levofloxacin 750 daily for 7 more days as per pulmonary Prednisone restarted at 40 daily she does give vaping hx too. (4) Person under investigation for COVID-19: Code(s): Z20.822 - Contact with and (suspected) exposure to COVID-19 Status: Acute Assessment and Plan: As above. Patient tested negative times 3! Increase activity. . (5) Pulmonary embolism: Qualifiers: Acute cor pulmonale presence: without acute cor pulmonale Chronicity: acute Pulmonary embolism type: unspecified Qualified Code(s): I26.99 - Other pulmonary embolism without acute cor pulmonale Code(s): I26.99 - Other pulmonary embolism without acute cor pulmonale Status: Acute Assessment and Plan: Initial Chest CTA showing a small pulmonary emboli in the lingula. She was started on Lovenox therapeutic dose. LE venous dopplers negative. Echo 60-65% with no pul HTN repeat CTA 06/18 no emboli, d/lyn full dose lovenox, prophylactic only (6) Hepatic steatosis: Code(s): K76.0 - Fatty (change of) liver, not elsewhere classified Status: Acute Assessment and Plan: LFTs were previously elevated as an outpatient. She states she was diagnosed with hepatic steatosis when she went to the ED in [place]. LFTs have been up and down since admission related to underlying infection/sepsis. Hep profile neg, Fe studies ok/ MACARIO and anti mitochondrial antibodies neg too. Preg test negative. Continue to follow. Subjective Date/time seen: 06/20/20 14:22 Interval history: Date of service 06/20 24-year-old female with hepatic steatosis here for cough, shortness of breath and weakness found to have pneumonia with sepsis. Feels better each day and less sob. No CP. No diarrhea today. Eating better. but still 02 requirements repeat CTA 06/18 no PE but marked infiltrates still present Exam Narrative: Exam Narrative: afebrile 37.0 118/66 110 18 96% 2L NC Gen - NARD Chest - distant BS but taking deeper breaths, no rales CV -tachycardic, regular. Abd - Soft, NT/ND, Positive BS Ext - No pedal edema Psych - nml mood and affect Skin - Warm and dry Objective Data Vital Signs Vital Signs: Vital Signs - 24 hr 06/19/20 14:30 06/19/20 14:35 06/19/20 15:20 Temperature Pulse Rate Respiratory Rate Blood Pressure Pulse Oximetry 96 94 96 06/19/20 15:30 06/19/20 16:00 06/19/20 20:00 Temperature 36.6 C 36.2 C L Pulse Rate 106 H 117 H Respiratory Rate 16 20 Blood Pressure 129/70
--- NOTE | 2020-06-20 20:29 | PM.PNPUL ---
Progress Note: A&P Assessment and Plan (1) Atypical pneumonia: Code(s): J18.9 - Pneumonia, unspecified organism Status: Acute Assessment and Plan: atypical pneumonia which may be due to a virus or atypical mycobacteria such as mycoplasma. It is certainly conceivable that IgG positivity on the mycoplasma could occur weeks after her symptoms began. Other potential causes include acute eosinophilic pneumonia or BOOP from vapping marijuana and she was encouraged to quit. - Influenza A/B PCR was negative - Levaquin 7500 mg p.o. daily for 7 days -prednisone 40 mg daily for 7 days -would recommend keeping the patient in hospital for an additional 24-48 hours looking for further improvement in symptoms and further weaning of oxygenation prior to discharge. -she will need a repeat chest x-ray in approximately 6 weeks time as an outpatient Subjective Date/time seen: 06/20/20 20:29 Interval history: She's feeling slightly better. Oxygen has been weaned to 3 liters from 6 liters Review of Systems Review of Systems: All systems reviewed & are unremarkable except as noted in HPI and below Exam Narrative: Exam Narrative: afebrile C Gen - NARD Chest - distant BS but taking deeper breaths, no rales CV -tachycardic, regular. Abd - Soft, NT/ND, Positive BS Ext - No pedal edema Psych - nml mood and affect Skin - Warm and dry Objective Data Vital Signs Vital Signs: Vital Signs - 24 hr 06/20/20 00:00 06/20/20 04:00 06/20/20 08:00 Temperature 36.2 C L 36.2 C L 36.4 C Pulse Rate 99 103 H 116 H Respiratory Rate 18 18 16 Blood Pressure 106/63 109/65 122/72 Pulse Oximetry 96 95 98 06/20/20 08:30 06/20/20 11:00 06/20/20 11:05 Temperature Pulse Rate Respiratory Rate Blood Pressure Pulse Oximetry 96 96 95 06/20/20 11:15 06/20/20 12:00 06/20/20 16:00 Temperature 36.1 C L Pulse Rate 95 117 H 104 H Respiratory Rate 18 Blood Pressure 117/67 Pulse Oximetry 94 96 Intake/Output Intake/Output: Intake & Output 06/17/20 06/18/20 06/19/20 06/20/20 23:59 23:59 23:59 23:59 Intake Total 3720 3570 2030 1430 Output Total 2200 3450 1100 400 Balance 1520 376 888 0371 Meds/Results Medications: Active Medications Generic Name Dose Route Start Last Admin Trade Name Freq PRN Reason Stop Dose Admin Albuterol 2 puff 06/11/20 10:27 06/20/20 06:42 Albuterol Sulfate (*Sp) Aerosol 1 Puff INHALATION 2 puff Q6HRT PRN Administration Shortness Of Breath Enoxaparin Sodium 40 mg 06/19/20 09:00 06/20/20 09:41 Enoxaparin 40 Mg/0.4 Ml Syringe SUB-Q 40 mg DAILY SARAH Administration Guaifenesin 600 mg 06/12/20 21:00 06/20/20 20:23 Guaifenesin 12 Hr 600 Mg Tabcr PO 600 mg Q12HR SARAH Administration Ibuprofen 200 mg 06/12/20 13:43 06/13/20 10:49 Ibuprofen 200 Mg Tablet PO 200 mg Q6H PRN Administration Pain Rated 1-3, fever Levofloxacin 750 mg 06/19/20 16:00 06/20/20 16:34 Levofloxacin Tab 750 Mg Tablet PO 750 mg Q24H SARAH Administration Pantoprazole Sodium 40 mg 06/12/20 09:00 06/20/20 09:42 Pantoprazole 40 Mg Tablet PO 40 mg QAM SARAH Administration Prednisone 40 mg 06/19/20 15:20 06/20/20 09:41 Prednisone 20 Mg Tablet PO 06/26/20 15:21 40 mg DAILY@0800 SARAH Administration Radiology Results: ITS Impressions Chest X-Ray 06/11/20 09:13 IMPRESSION: Moderate to large amount of bilateral acute airspace disease. Possible COVID pneumonia. Chest/Abdomen/Pelvis CTA 06/11/20 09:35 IMPRESSION: 1. Suggestion of a single pulmonary embolism in a first order branch of the inferior segmental pulmonary artery of the lingula. Specificity is however decreased primarily by some motion artifact. 2. Prominent pulmonary patchy groundglass opacities with bilateral mid and lower lung predominance which could represent moderate pulmonary edema or pneumonia, particularly COVID pneumonia. 3. Diffuse hepatic steatosis. Venou
--- NOTE | 2020-06-20 20:39 | ECG_ITS ---
Measurements Intervals [place] Rate: 98 P: 34 RI: 153 QRS: 54 QRSD: 82 T: 30 QT: 317 QTc: 406 Interpretive Statements SINUS RHYTHM MINIMAL Q WAVES- INFERIOR LEADS BORDERLINE ECG Electronically Signed On 06-21-2020 7:05:51 LICENSED PHARMACIST by Julien Boyce D.O.
[2020-06-21] VITALS (8 sets, daily range): BP systolic 113–141; BP diastolic 63–86; PULSE 90–128; RESP 16–22; TEMP 35.8–36.2; O2SAT 95–98
[2020-06-21 06:35] LABS: Basophils Absolute Auto 0.1 K/mm3 (0.0-0.1); Basophils Percent Auto 0.5 % (0.2-1.2); Eosinophils Absolute Auto 0.4 K/mm3 (0-0.3); Eosinophils Percent Auto 2.8 % (0-4.4); Hematocrit 39.9 % (37.0-47.0); Hemoglobin 13.3 g/dL (12.0-15.0); Immature Granulocyte Absolute 0.32 K/mm3 (0.00-0.031); Immature Granulocyte Percent A 2.1 % (0-0.5); Lymphocytes Absolute Auto 2.44 K/mm3 (0.9-3.2); Lymphocytes Percent Auto 15.9 % (18.3-44.2); Mean Corpuscular HGB Conc 33.3 g/dl (32-36); Mean Corpuscular Hemoglobin 31.9 pg (26-34); Mean Corpuscular Volume 95.7 fl (80-100); Mean Platelet Volume 8.3 fl (7.4-10.4); Monocytes Absolute Auto 0.4 K/mm3 (0.1-0.6); Monocytes Percent Auto 2.8 % (2.6-8.5); Neutrophils Absolute Auto 11.7 K/mm3 (1.3-6.7); Neutrophils Percent Auto 75.9 % (45.5-73.1); Platelet Count Result 707 k/mm3 (150-375); Red Blood Count 4.17 M/mm3 (4.2-5.4); Red Cell Distribution Width 12.6 % (11.5-14.5); White Blood Count 15.4 K/mm3 (4.5-10.0)
[2020-06-21 06:46] LABS: Anion Gap 7 mmol/L (8-16); Blood Urea Nitrogen 17 mg/dL (7-17); Calcium 9.1 mg/dL (8.4-10.2); Carbon Dioxide 26 mmol/L (22-30); Chloride 102 mmol/L (98-107); Estimated CRCL calculation 103 ml/min; Estimated Glomerular Filt Rate > 60; Glucose 102 mg/dL (65-105); Potassium 4.3 mmol/L (3.4-5.0); Sodium 135 mmol/L (137-145)
[2020-06-21] MEDS: predniSONE 20 MG TABLET 40 MG PO (08:09)
[2020-06-21] MEDS: guaiFENesin 12 HR 600 MG TABCR PO ×2 (08:09→21:51)
[2020-06-21] MEDS: PANTOPRAZOLE 40 MG TABLET PO (08:10)
[2020-06-21] MEDS: ENOXAPARIN 40 MG/0.4 ML SYRINGE SUB-Q (08:10)
[2020-06-21 08:36] LABS: NT Pro B Type Natriuretic Pept 35 PG/ML (5-100)
--- NOTE | 2020-06-21 09:43 | PM.PNPUL ---
Progress Note: A&P Assessment and Plan (1) Atypical pneumonia: Code(s): J18.9 - Pneumonia, unspecified organism Status: Acute Assessment and Plan: atypical pneumonia which may be due to a virus or atypical such as mycoplasma. It is certainly conceivable that IgG positivity on the mycoplasma could occur weeks after her symptoms began. Other potential causes include acute eosinophilic pneumonia or BOOP from vapping marijuana and she was encouraged to quit. - Influenza A/B PCR was negative, SARS negative X 2. - Levaquin 7500 mg p.o. daily for total 7 days -prednisone 40 mg daily for total 7 days -home O2 assessment prior to discharge. -she will need a repeat chest x-ray in approximately 6 weeks time as an outpatient and she will follow up with primary Dr. Roberson. Discussed with Dr. Miranda, will sign off, please call with any questions. Subjective Date/time seen: 06/21/20 09:43 Interval history: 06/21 Patient continues to improve, 2 L NC with sats 94%. More energy, walking in room. 06/20 She's feeling slightly better. Oxygen has been weaned to 3 liters from 6 liters Review of Systems Review of Systems: All systems reviewed & are unremarkable except as noted in HPI and below Constitutional: Constitutional: Reports weakness Eyes: Eyes: Reports no additional eye complaints ENT: Reports system reviewed and no additional complaints, except as documented and Reports sinus pressure Cardiovascular: Cardiovascular: Reports no additional cardiovascular complaints Respiratory: Respiratory: Reports no additional respiratory complaints, Denies chest congestion, Reports cough, Denies hemoptysis, Reports dyspnea and Denies wheezing Gastrointestinal: Gastrointestinal: Reports no additional gastrointestinal complaints Musculoskeletal: Musculoskeletal: Reports no additional musculoskeletal complaints Integumentary/Breasts: Skin/Breast: Reports system reviewed and no additional complaints, except as docu Neurologic: Reports system reviewed and no additional complaints, except as documented and Reports behavioral changes Psychiatric: Psychiatric: Reports no additional psychiatric complaints and Reports behavioral changes Endocrine: Endocrine: Reports no additional endocrine complaints Exam Const: General: cooperative and healthy appearing Orientation/consciousness: oriented to person, oriented to place and oriented to time HENMT: Head: normal to inspection Ears: hearing grossly normal bilaterally Mouth: Yes Normal oral and palatal mucosa present Throat: tonsils absent Eyes: General: appearance normal, both eyes and all related structures Neck: Neck: normal visual inspection Chest: Chest palpation & inspection: normal inspection of the chest Resp: Effort & Inspection: normal respiratory effort, normal respiratory pattern, no audible wheezes and no cough Auscultation: clear to auscultation bilaterally, no crackles, no rales, no rhonchi and no wheezes Cardio: Jugular venous distension: no JVD GI: Inspection: normal to inspection Skin: General skin exam: normal color Neuro: General: oriented to person, oriented to place and oriented to time Extrem: General: normal to inspection Psych: Appearance: grossly normal Objective Data Vital Signs Vital Signs: Vital Signs - 24 hr 06/20/20 11:00 06/20/20 11:05 06/20/20 11:15 Temperature Pulse Rate 95 Respiratory Rate Blood Pressure Pulse Oximetry 96 95 94 06/20/20 12:00 06/20/20 16:00 06/20/20 20:00 Temperature 36.1 C L 36.3 C L Pulse Rate 117 H 104 H 130 H Respiratory Rate 18 18 Blood Pressure 117/67 115/65 Pulse Oximetry 96 92 06/20/20 20:41 06/20/20 23:50 06/21/20 00:00 Temperature 36.6 C Pulse Rate 128 H 112 H 97 Respiratory Rate 18 Blood Pressure 116/60 Pulse Oximetry 94 94 06/21/20 04:00 06/21/20 08:00 06/21/20 08:34 Temperature 36.2 C L Pulse Rate 90 105 H Respiratory Rate 18 18 Blood Pressure 1
--- NOTE | 2020-06-21 10:59 | PCRCNOTE ---
HOME O2 EVAL ATTEMPTED, SAO2 92% ON ROOM AIR AT REST. PT DESAT TO MID 80'S ON 6 L O2 WITH ACTIVITY AND HEART RATE INCREASED TO 178. DR GARCÍA COHEN.
--- NOTE | 2020-06-21 11:06 | PM.IMPN ---
Progress Note: A&P Assessment and Plan (1) Sepsis: Code(s): A41.9 - Sepsis, unspecified organism Status: Acute Assessment and Plan: The patient met criteria for sepsis with fever, leukocytosis, tachycardia, and acute respiratory failure with hypoxia secondary to underlying pneumonia. Lactic acid level was within normal limits. WBC stable to declining until steroids restarted . Blood cultures NGTD. Had 8 days of IV antibiotics and Pul switched to levofloxacin po now. Plan for 7 days of total treatment (2) Acute respiratory failure with hypoxia: Code(s): J96.01 - Acute respiratory failure with hypoxia Status: Acute Assessment and Plan: The patient was hypoxic on admission and now at 2inc. SARS2-CoV-2 negativ x 3. She received a dose of dexamethasone in the ED 06/11 and this was continued but d/lyn 06/18 but Pul started prednisone 40 qd with plans for 7 days total. Continue abx for stypical bacterial PNA. Mucinex for cough. Pulmonary following now and appreciate their input. Discussed. Consider bronch if she does not improve. (3) Bilateral pneumonia: Code(s): J18.9 - Pneumonia, unspecified organism Status: Acute Assessment and Plan: WBC was elevated to 18.9K and with fevers. Chest CT showing bilateral airspace disease mostly posterior and lower. Legionella, strep pneumoniae, antigens negative and mycoplasma + but IgG . Procalcitonin level pending. Fevers down. SARS2-CoV2 negative x3. As above received 8 days of IV antibiotics and change to p.o. levofloxacin 750 daily for 7 more days for atypical PNA as per pulmonary. Prednisone restarted at 40 daily also for 7 days. Discussed. She does give a vaping hx too. (4) Person under investigation for COVID-19: Code(s): Z20.822 - Contact with and (suspected) exposure to COVID-19 Status: Acute Assessment and Plan: As above. Patient tested negative times 3! Increase activity. (5) Pulmonary embolism: Qualifiers: Acute cor pulmonale presence: without acute cor pulmonale Chronicity: acute Pulmonary embolism type: unspecified Qualified Code(s): I26.99 - Other pulmonary embolism without acute cor pulmonale Code(s): I26.99 - Other pulmonary embolism without acute cor pulmonale Status: Acute Assessment and Plan: Initial Chest CTA showing a small pulmonary emboli in the lingula. She was started on Lovenox therapeutic dose. LE venous dopplers negative. Echo 60-65% with no pul HTN. Repeat CTA 06/18 no emboli so she the full dose lovenox stopped and cahnged to prophylactic only (6) Hepatic steatosis: Code(s): K76.0 - Fatty (change of) liver, not elsewhere classified Status: Acute Assessment and Plan: LFTs were previously elevated as an outpatient. She states she was diagnosed with hepatic steatosis when she went to the ED in [place]. LFTs have been up and down since admission related to underlying infection/sepsis. Hep profile neg, Fe studies ok/ MACARIO and anti mitochondrial antibodies neg too. Preg test negative. Continue to follow. Subjective Date/time seen: 06/21/20 11:06 Interval history: Date of service 06/21 24-year-old female with hepatic steatosis here for cough, shortness of and weakness found to have pneumonia with sepsis. Resuming care. Chart reviewed. Slight cough but better. Only walking in room and to the bedside commode. No CP. Eating okay. Weaned to RA at rest before home O2 evaluation but dropped to mid 80's on 6L with activity. No exposures to birds. Exam Narrative: Exam Narrative: AF 97.2 122/63 128 18 96% 1L Gen - NARD lying semi-recumbent in bed Chest - distant but clear BS. nml RR CV - tachycardic, regular. Tele showing sinus tach Abd - Soft, NT/ND, Positive BS Ext - No pedal edema Psych - nml mood and affect Skin - Warm and dry Objective Data Vital Signs Vital Signs: Vital Signs - 24
[2020-06-21 15:24] LABS: Vancomycin Trough < 5.0 ug/mL (10.0-20.0)
--- NOTE | 2020-06-21 18:38 | PC.NURSE ---
Pt staying tonight r/t hypoxia during home o2 evaluation.Experienced tachycardic episodes in 170s. Dr. Miranda aware.Pt is currently been up to bathroom with no standyby assist. Oxygen is at 1LPM
[2020-06-22] VITALS (10 sets, daily range): BP systolic 112–127; BP diastolic 66–83; PULSE 92–136; RESP 16–20; TEMP 36.2–36.7; O2SAT 93–100
[2020-06-22] MEDS: ENOXAPARIN 40 MG/0.4 ML SYRINGE SUB-Q (08:15)
[2020-06-22] MEDS: guaiFENesin 12 HR 600 MG TABCR PO ×2 (08:15→20:57)
[2020-06-22] MEDS: PANTOPRAZOLE 40 MG TABLET PO (08:15)
[2020-06-22] MEDS: predniSONE 20 MG TABLET 40 MG PO (08:15)
--- NOTE | 2020-06-22 11:03 | PM.PNPUL ---
Progress Note: A&P Assessment and Plan (1) Atypical pneumonia: Code(s): J18.9 - Pneumonia, unspecified organism Status: Acute Assessment and Plan: atypical pneumonia which may be due to a virus or atypical such as mycoplasma. It is certainly conceivable that IgG positivity on the mycoplasma could occur weeks after her symptoms began. Other potential causes include acute eosinophilic pneumonia or BOOP from vapping marijuana cartridges which she has quit on 05/21/2020. Minimal improvement with antibiotics and I suspect that her continued infiltrates on CCXR are not related to bacterial pneyuuumonia. I recomended bronchoscopy with her and currently she is not in favor of undergoing a bronchsocopy but will think about it overnight. Otherwise she should finish levaquin and continue prednisone 40 mg PO for total 14 days. - Influenza A/B PCR was negative, SARS negative X 2. - Levaquin 7500 mg p.o. daily for total 7 days -prednisone 40 mg daily for total 14 days -home O2 assessment prior to discharge. Can be discharged once she is stable on <6 L NC with ambulation. -she will need a repeat chest x-ray in approximately 6 weeks time as an outpatient and she will follow up with primary Dr. Roberson. Subjective Date/time seen: 06/22/20 11:03 Interval history: Interval history: 06/20 She's feeling slightly better. Oxygen has been weaned to 3 liters from 6 liters 2/ Patient continues to improve, 2 L NC with sats 94%. More energy, walking in room. RA sats 92%, 85% with 6 L and ambulation. 2/2 Continues to slowly improve, CXR no change in diffuse interstitial and alverolar infiltrates. Overall she feels close to baseline and much better than admission. reveiwed history: Patient was previously healthy until she presents until about 1 week prior to admission on 122. She was tired, had night sweats, felt warm but never took her temperature, dry cough and shortness of breath. Patient denied any hemoptysis, no rashes no swollen joints and never said any respiratory issues before. Patient had no sick contacts. 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 Patient is a never smoker. Patient smoked marijuana cigarettes from age 19 to 24 about 1 cigarette per week or maybe 1 use of a pipe with 10 inhalers at a time. She denies any meth amphetamine, cocaine, heroin use. In June of 2019 patient did smoke pot start to smoke a marijuana cartridge. She did this 1 time a day for up to 20 puffs a day. Patient quit on May 21, 2020 for a new year's resolution. At that point she had no shortness of breath. She then started having this above symptoms about 2 weeks after she discontinued this vaping. Review of Systems Review of Systems: All systems reviewed & are unremarkable except as noted in HPI and below Constitutional: Constitutional: Reports weakness Eyes: Eyes: Reports no additional eye complaints ENT: Reports system reviewed and no additional complaints, except as documented and Reports sinus pressure Cardiovascular: Cardiovascular: Reports no additional cardiovascular complaints and Reports dyspnea Respiratory: Respiratory: Reports no additional respiratory complaints, Denies chest congestion, Reports cough, Denies hemoptysis, Reports dyspnea and Denies wheezing Gastrointestinal: Gastrointestinal: Reports no additional gastrointestinal complaints Musculoskeletal: Musculoskeletal: Reports no additional musculoskeletal complaints Integumentary/Breasts: Skin/Breast: Reports system reviewed and no additional complaints, except as docu Neurologic: Reports system reviewed and no additional complaints, except as documented, Reports behavioral changes and Reports weakness Psychiatric: Psychiatric: Reports no additional psychiatric complaints and Reports behavioral changes Endocrine: Endocrine: Reports no additional endocrine complaints Allergic/Immunologic: Allergic/Immunologic: Denies
[2020-06-22 11:44] LABS: Rheumatoid Factor < 8.6 IU/ML (<12)
--- NOTE | 2020-06-22 15:04 | PM.IMPN ---
Progress Note: A&P Assessment and Plan (1) Sepsis: Code(s): A41.9 - Sepsis, unspecified organism Status: Acute Assessment and Plan: The patient met criteria for sepsis with fever, leukocytosis, tachycardia, and acute respiratory failure with hypoxia secondary to underlying pneumonia. Lactic acid level was within normal limits. WBC stable to declining until steroids restarted . Blood cultures Negative. Had 8 days of IV antibiotics and Pul switched to levofloxacin po now. Plan for 7 days of total treatment (2) Acute respiratory failure with hypoxia: Code(s): J96.01 - Acute respiratory failure with hypoxia Status: Acute Assessment and Plan: The patient was hypoxic on admission and now at 1L but requiring 6L with activity. CTA showing ground glass with crazy-paving pattern c/w VAPI with lipoid pneumonia predominate pattern. SARS2-CoV-2 negative x 3. She does have Grade II diastolic dysfunction but BNP normal and no clinically concerns making CHF unlikely. She received a dose of dexamethasone in the ED 06/11 and continued but d/lyn 06/18; Pul started prednisone 40 qd with plans for 7 days total. Continue abx for atypical bacterial PNA. Mucinex for cough. Pulmonary following now and appreciate their input. Consider bronch if she does not improve. (3) Bilateral pneumonia: Code(s): J18.9 - Pneumonia, unspecified organism Status: Acute Assessment and Plan: WBC was elevated to 18.9K and with fevers. Chest CT showing bilateral airspace disease mostly posterior and lower. Legionella, strep pneumoniae antigens negative and mycoplasma + but IgG. Procalcitonin level is low. Fevers resolved. SARS2-CoV2 negative x3. As above received 8 days of IV antibiotics and change to p.o. levofloxacin 750 daily (Day 4) for 7 more days for atypical PNA as per pulmonary. Prednisone restarted at 40 daily also for 7 days. Discussed with pulmonary. May have lipoid PNA from vaping. Will check HIV and have ID consult to see if there other infectious etiologies that need to be considered. (4) Person under investigation for COVID-19: Code(s): Z20.822 - Contact with and (suspected) exposure to COVID-19 Status: Acute Assessment and Plan: As above. Patient tested negative times 3! (5) Pulmonary embolism: Qualifiers: Acute cor pulmonale presence: without acute cor pulmonale Chronicity: acute Pulmonary embolism type: unspecified Qualified Code(s): I26.99 - Other pulmonary embolism without acute cor pulmonale Code(s): I26.99 - Other pulmonary embolism without acute cor pulmonale Status: Acute Assessment and Plan: Initial Chest CTA showing a small pulmonary emboli in the lingula. She was started on Lovenox therapeutic dose. LE venous dopplers negative. Echo 60-65% with no pulmonary HTN. Repeat CTA 06/18 showing no emboli so the full dose lovenox stopped by previous provider and patient changed to prophylactic only. Will discuss with radiology. (6) Hepatic steatosis: Code(s): K76.0 - Fatty (change of) liver, not elsewhere classified Status: Acute Assessment and Plan: LFTs were previously elevated as an outpatient. She states she was diagnosed with hepatic steatosis when she went to the ED in [place]. LFTs have been up and down since admission related to underlying infection/sepsis. Hepatitis profile neg, Fe studies ok/ MACARIO and anti mitochondrial antibodies neg, A1AT normal phenotype too. Preg test negative. Continue to follow. (7) Tachycardia: Code(s): R00.0 - Tachycardia, unspecified Status: Acute Assessment and Plan: Patient with persistent tachycardia even at rest. Her HR runs about 100 when sleeping but 120 at rest when awake. No PE from last CT on 06/18. TSH normal. Doubt dehydration given that she is eating 100% of her meals. Some component of anxiety but not fully explain her tachyc
--- NOTE | 2020-06-22 16:38 | PCRCNOTE ---
HOME O2 EVAL DONE ON 06/21/20, DIDNT QUALIFY FOR HOME O2 DUE TO TOO HIGH OF A O2 NEED AT THE TIME. SPOKE TO RN, HE IS AWARE THAT THE EVALS WERE DONE, STATED THAT PT ISNT PLANNED FOR DISCHARGE SOON. WILL WAIT FOR CLOSER TO D/C TO REPEAT IF NEEDED
[2020-06-22 17:09] LABS: HIV 1/2 Ab P24 Ag Result Negative (Negative)
[2020-06-23] VITALS (12 sets, daily range): BP systolic 110–135; BP diastolic 68–88; PULSE 99–200; RESP 6–20; TEMP 36.2–36.6; O2SAT 90–96
[2020-06-23 06:17] LABS: Basophils Absolute Auto 0.1 K/mm3 (0.0-0.1); Basophils Percent Auto 0.5 % (0.2-1.2); Eosinophils Absolute Auto 0.1 K/mm3 (0-0.3); Eosinophils Percent Auto 0.4 % (0-4.4); Hematocrit 37.9 % (37.0-47.0); Hemoglobin 12.7 g/dL (12.0-15.0); Immature Granulocyte Absolute 0.19 K/mm3 (0.00-0.031); Immature Granulocyte Percent A 1.5 % (0-0.5); Lymphocytes Absolute Auto 2.72 K/mm3 (0.9-3.2); Lymphocytes Percent Auto 20.9 % (18.3-44.2); Mean Corpuscular HGB Conc 33.5 g/dl (32-36); Mean Corpuscular Hemoglobin 31.3 pg (26-34); Mean Corpuscular Volume 93.3 fl (80-100); Mean Platelet Volume 8.2 fl (7.4-10.4); Monocytes Absolute Auto 0.6 K/mm3 (0.1-0.6); Monocytes Percent Auto 4.6 % (2.6-8.5); Neutrophils Absolute Auto 9.4 K/mm3 (1.3-6.7); Neutrophils Percent Auto 72.1 % (45.5-73.1); Platelet Count Result 619 k/mm3 (150-375); Red Blood Count 4.06 M/mm3 (4.2-5.4); Red Cell Distribution Width 12.3 % (11.5-14.5)
[2020-06-23 07:29] LABS: Alanine Aminotransferase 158 U/L (4-35); Albumin Level 3.2 g/dL (3.5-5.1); Alkaline Phosphatase 99 U/L (38-126); Anion Gap 6 mmol/L (8-16); Aspartate Amino Transferase 121 U/L (14-36); Bilirubin,Total 0.5 mg/dL (0.2-1.3); Blood Urea Nitrogen 18 mg/dL (7-17); CRP 1.7 mg/dL (<1.0); Calcium 8.9 mg/dL (8.4-10.2); Carbon Dioxide 28 mmol/L (22-30); Chloride 101 mmol/L (98-107); Estimated CRCL calculation 92 ml/min; Estimated Glomerular Filt Rate > 60; Glucose 100 mg/dL (65-105); Potassium 3.8 mmol/L (3.4-5.0); Sodium 135 mmol/L (137-145)
--- NOTE | 2020-06-23 09:05 | PM.PNPUL ---
Progress Note: A&P Assessment and Plan (1) Atypical pneumonia: Code(s): J18.9 - Pneumonia, unspecified organism Status: Acute Assessment and Plan: atypical pneumonia which may be due to a virus or atypical such as mycoplasma. It is certainly conceivable that IgG positivity on the mycoplasma could occur weeks after her symptoms began. Other potential causes include acute eosinophilic pneumonia or BOOP from vapping marijuana cartridges which she has quit on 05/21/2020. Minimal improvement with antibiotics and I suspect that her continued infiltrates on CCXR are not related to bacterial pneyuuumonia. 06/22 I recommended bronchoscopy with her and currently she is not in favor of undergoing a bronchsocopy but will think about it overnight. Otherwise she should finish levaquin and continue prednisone 40 mg PO for total 14 days. - Influenza A/B PCR was negative, SARS negative X 2. - Levaquin 750 mg p.o. daily for total 7 days -prednisone 40 mg daily for total 14 days -home O2 assessment prior to discharge. Can be discharged once she is stable on <6 L NC with ambulation. -she will need a repeat chest x-ray in approximately 2 weeks time as an outpatient and she will follow up with primary Dr. Roberson. 06/23 I recommend bronchoscopy but patient does not want to have that done at this time. She is HIV negative. ID consult requested. Overall she is improved clinically and was on 10 L oxygen on admission and now required NC 6 L with ambulation. Still unclear etiology of her infiltrates with E-cig vaping acute lung injury (EVALI) at the top of my differential. Acute interstial pneumonia, vasculitis and alveolar hemorrhage also possibilities. Although no well established treatment for EVALI steroids have been used for 10-14 days and recommend prednisone 40 Q day for total 14 days with repeat CXR in about 2 weeks to assess infiltrates. CTDS work up pending (RF negative, MACARIO negative, extended autoantibody screen and ANCA screens pending. (2) Pulmonary embolism: Qualifiers: Acute cor pulmonale presence: without acute cor pulmonale Chronicity: acute Pulmonary embolism type: unspecified Qualified Code(s): I26.99 - Other pulmonary embolism without acute cor pulmonale Code(s): I26.99 - Other pulmonary embolism without acute cor pulmonale Status: Acute Assessment and Plan: Reviewed CT scans with radiology and initial reading of possible PE was complicated by motion artifact and repeat CT scan without PE. Dopplers 06/12 of lower extremitites negative. Given that her infiltrates worsened with anticoagulation agree with discontinuation of anticouagulation for now. Subjective Date/time seen: 06/23/20 09:05 Interval history: Interval history: Interval history: 06/20 She's feeling slightly better. Oxygen has been weaned to 3 liters from 6 liters 06/21 Patient continues to improve, 2 L NC with sats 94%. More energy, walking in room. RA sats 92%, 85% with 6 L and ambulation. 06/22 Continues to slowly improve, CXR no change in diffuse interstitial and alverolar infiltrates. Overall she feels close to baseline and much better than admission. reveiwed history: Patient was previously healthy until she presents until about 1 week prior to admission on 122. She was tired, had night sweats, felt warm but never took her temperature, dry cough and shortness of breath. Patient denied any hemoptysis, no rashes no swollen joints and never said any respiratory issues before. Patient had no sick contacts. 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 Patient is a never smoker. Patient smoked marijuana cigarettes from age 19 to 24 about 1 cigarette per week or maybe 1 use of a pipe with 10 inhalers at a time. She denies any meth amphetamine, cocaine, heroin use. In June of 2019 patient did smoke pot start to smoke a marijuana cartridge. She did this 1 time a day for up to 20 puffs a day. Darion
[2020-06-23] MEDS: guaiFENesin 12 HR 600 MG TABCR PO (10:08)
[2020-06-23] MEDS: predniSONE 20 MG TABLET 40 MG PO (10:08)
[2020-06-23] MEDS: ENOXAPARIN 40 MG/0.4 ML SYRINGE SUB-Q (10:08)
[2020-06-23] MEDS: PANTOPRAZOLE 40 MG TABLET PO (10:09)
--- NOTE | 2020-06-23 10:28 | HOMEO2EVAL ---
Home Oxygen Evaluation RC: Home Oxygen (O2) Evaluation Start: 06/21/20 09:20 Freq: ONCE Status: Active Protocol: RPE Activity Type Activity Date Activity User E-Sign Co-Sign Detail Recorded Client Recorded Date Recorded By Document 06/23/20 10:00 [employer] [id number] 06/23/20 10:26 DJO Document 06/23/20 10:10 DJO [email or web address] 06/23/20 10:26 DJO Document 06/23/20 10:15 [employer] [id number] 06/23/20 10:26 DJO 06/23/20 06/23/20 06/23/20 10:00 10:10 10:15 Home O2 Evaluation Test Phase Resting Exercise Resting Oxygen Delivery Room Air Room Air Pulse Oximetry (90-100 %) 96 90 95 Pulse Rate (60-100 beats/min) 200 H 176 H 175 H Activity Tolerance Good Ambulation Distance (feet) 200 Treatment Charges O2 Evaluation - Inpatient
--- NOTE | 2020-06-23 10:47 | PCNFU ---
Nutrition Follow-Up Complete: Inadequate energy intake related to poor appetite as evidenced by refusing to eat meals. Goal: Increase caloric intake with consumption of 50% of meals/supplements or greater. Patient has met current goal. No new goal. Pt current nutrition is Regular. Last recorded weight is 85.1 kg,down from 88 kg on admit. Bowel Motility:+BM reported 06/20 Labs Reviewed: BUN 18,Na 135,Alb 3.2 Meds Noted:Mucinex,Protonix, Prednisone. Additional Notes: Patient seen today for nutritional follow up. Diet order: Regular. Oral Intake 75-100% of meals. She would like the ensure compact discontinued today-eating well. Agree with diet orders. Monitoring: patient labs, medications, weight, and oral intake every 7 days.
--- NOTE | 2020-06-23 11:19 | WPDINFPN2 ---
Progress Note: A&P Assessment and Plan (1) Hypoxia: Code(s): R09.02 - Hypoxemia Status: Acute Assessment and Plan: Dyspnea, very likely from marijuana vaping REC Needs no further evaluation from my standpoint. I don't think that she needs any further antibiotic, but will leave to your discretion. Call if other Qs Subjective Date/time seen: 06/23/20 11:19 Objective Data Vital Signs Vital Signs: Vital Signs - 24 hr 06/22/20 12:00 06/22/20 16:00 06/22/20 16:46 Temperature 36.3 C L 36.5 C Pulse Rate 130 H 126 H 119 H Respiratory Rate 20 20 Blood Pressure 124/83 127/74 Pulse Oximetry 97 98 06/22/20 20:00 06/22/20 21:59 06/22/20 22:00 Temperature 36.3 C L Pulse Rate 136 H 109 H Respiratory Rate 20 Blood Pressure 115/78 Pulse Oximetry 100 93 06/23/20 00:00 06/23/20 04:00 06/23/20 10:00 Temperature 36.6 C 36.4 C Pulse Rate 104 H 109 H 200 H Respiratory Rate 20 20 Blood Pressure 124/68 110/72 Pulse Oximetry 94 92 96 06/23/20 10:10 06/23/20 10:15 Temperature Pulse Rate 176 H 175 H Respiratory Rate Blood Pressure Pulse Oximetry 90 95 Intake/Output Intake/Output: Intake & Output 06/20/20 06/21/20 06/22/20 06/23/20 23:59 23:59 23:59 23:59 Intake Total 1790 1480 1570 640 Output Total 400 1000 525 Balance 1390 1480 570 115 Meds/Results Medications: Active Medications Generic Name Dose Route Start Last Admin Trade Name Freq PRN Reason Stop Dose Admin Enoxaparin Sodium 40 mg 06/19/20 09:00 06/23/20 10:08 Enoxaparin 40 Mg/0.4 Ml Syringe SUB-Q 40 mg DAILY SARAH Administration Guaifenesin 600 mg 06/12/20 21:00 06/23/20 10:08 Guaifenesin 12 Hr 600 Mg Tabcr PO 600 mg Q12HR SARAH Administration Ibuprofen 200 mg 06/12/20 13:43 06/13/20 10:49 Ibuprofen 200 Mg Tablet PO 200 mg Q6H PRN Administration Pain Rated 1-3, fever Levofloxacin 750 mg 06/19/20 16:00 06/22/20 16:42 Levofloxacin Tab 750 Mg Tablet PO 750 mg Q24H SARAH Administration Lorazepam 0.5 mg 06/22/20 15:56 Lorazepam (*Crx) 0.5 Mg Tablet PO Q6H PRN Anxiety Pantoprazole Sodium 40 mg 06/12/20 09:00 06/23/20 10:09 Pantoprazole 40 Mg Tablet PO 40 mg QAM SARAH Administration Prednisone 40 mg 06/19/20 15:20 06/23/20 10:08 Prednisone 20 Mg Tablet PO 06/26/20 15:21 40 mg DAILY@0800 SARAH Administration Radiology Results: ITS Impressions Chest/Abdomen/Pelvis CTA 06/11/20 09:35 IMPRESSION: 1. Suggestion of a single pulmonary embolism in a first order branch of the inferior segmental pulmonary artery of the lingula. Specificity is however decreased primarily by some motion artifact. 2. Prominent pulmonary patchy groundglass opacities with bilateral mid and lower lung predominance which could represent moderate pulmonary edema or pneumonia, particularly COVID pneumonia. 3. Diffuse hepatic steatosis. Venous Doppler Study 06/12/20 15:36 IMPRESSION: 1. No lower extremity deep venous thrombosis bilaterally. Chest CTA 06/18/20 13:53 IMPRESSION: 1. No pulmonary embolism. 2. Interval increase in extensive bilateral groundglass opacities and smooth septal line thickening. Differential includes moderate pulmonary edema and/or pneumonia. 3. Diffuse hepatic steatosis. Chest X-Ray 06/22/20 07:05 IMPRESSION: Persistent severe bilateral pulmonary infiltrates Labs Labs: Laboratory Results - last 24 hr 06/22/20 06/22/20 06/22/20 11:17 11:20 11:20 WBC RBC Hgb Hct MCV MCH MCHC RDW Plt Count MPV Immature Gran % (Auto) Neut % (Auto) Lymph % (Auto) [place] % (Auto) Eos % (Auto) Baso % (Auto) Lymph # (Auto) [place] # (Auto) Eos # (Auto) Baso # (Auto) Abs Immat Gran (auto) Absolute Neuts (auto) Absolute Nucleated RBC Nucleated RBC % Sodium Potassium Chloride Carbon Dioxide Anion Gap BUN Creatinine
--- NOTE | 2020-06-23 12:48 | CONS_ITS ---
DATE OF CONSULTATION: 06/23/2020 REASON FOR CONSULTATION: Dyspnea and lung infiltrates. HISTORY OF PRESENT ILLNESS: A 24-year-old female who was vaping marijuana for about 3 months on a consistent basis, last done on last month. She was admitted to the hospital here 3 weeks later with shortness of breath, cough, generalized weakness, anorexia, nausea, sinus congestion, myalgias, arthralgias. These have been present for approximately 6 days before admission. Here, she was found to have hypoxia and lung infiltrates. She was given a single dose of dexamethasone initially and started on ceftriaxone and azithromycin. Vancomycin was started the following day, and she was also given 10 doses of dexamethasone, now on prednisone. Her antibiotics were discontinued after 7 days. The patient has never had pneumonia, has not had to be hospitalized for lung disease. She denies any high-grade fevers, rigors, night sweats. She has 2 cats at home, both about a year old. They appear to have been healthy. She has no outdoor hobbies. No wild animal exposure. She does not follow any particular diets, is not exposed to uncooked protein. She has a boyfriend who has been entirely healthy. The patient has not been exposed to coronavirus. HABITS: Alcohol to excess. Quit in fall of last year. Also tobacco on occasion. ALLERGIES: NONE KNOWN. PRESENT MEDICATIONS: Now on levofloxacin since June 19. No ongoing immunosuppressants. PAST MEDICAL HISTORY: Anxiety, otherwise none. FAMILY HISTORY: Not pertinent to her present illness. SOCIAL HISTORY: She is single. Does not work outside the home. Lives locally. REVIEW OF SYSTEMS: Constitutional, GI, respiratory, skin, musculoskeletal otherwise negative. PHYSICAL EXAMINATION: GENERAL: Young female, appears her actual age. No distress. VITAL SIGNS: She is off her oxygen since last evening. Saturation 95%. Pulse has been variable, 92 up to 200, respirations 20, 110/72. She had a temperature on her 2nd hospital day up to 38.5, afebrile over a week. SKIN: No rashes, warm and dry. EENT: Conjunctivae are normal. Pupils are dilated but reactive. No injection. The oropharynx, oral mucosa normal. Teeth in excellent repair. NECK: No stridor, mass, thyromegaly, or meningismus. LUNGS: Clear to auscultation and percussion. Chest equal expansion. Normal AP diameter. CARDIAC: Tachycardic, regular. Pulses are 2+. She has no heaves. ABDOMEN: Mildly obese, nontender, nondistended. Normal bowel sounds. EXTREMITIES: No clubbing, cyanosis, edema, calf tenderness, or venous varicosities. LABORATORY DATA: Histoplasma antigen of the urine is in process. HIV is nonreactive. Serologies for legionella and pneumococcus both nonreactive. Coronavirus assay twice nonreactive. Influenza screen nonreactive. Hepatitis panel was all nonreactive as well. Hepatitis C RNA was ordered for unknown reasons, is undetectable. Mycoplasma IgG is minimally positive. MACARIO was nonreactive. Urinalysis, contaminated specimen. She has mild hyponatremia. Transaminases high, approximately 3 times normal. Albumin 3.2. CRP is 1.7. Procalcitonin level 0.36 on June 11. Blood gases on admission 7.48, 38, 64, 27, 94%. White blood cell count persistently high, 13 today, hemoglobin 12.7, platelets are 619. Differential is normal. RADIOLOGY: I personally reviewed her chest x-ray. She has fluffy bilateral infiltrates and lower lobe predominance. This is more pronounced on her most recent x-ray yesterday compared to admission chest x-ray, also reviewed the radiologist's interpretation. Chest CT read as ground-glass opacities, hepatic steatosis. OGD, mild scoliosis. ASSESSMENT: 1. Hypoxemia, lung infiltrates, dyspnea, I think very li
--- NOTE | 2020-06-23 14:30 | PM.DS ---
DS: Admitting Diagnosis Admitting Diagnosis Admitting Diagnosis: Cough And shortness of breath DS: Discharge Diagnosis Discharge Diagnosis (1) Sepsis: Code(s): A41.9 - Sepsis, unspecified organism Status: Acute Assessment and Plan: The patient met criteria for sepsis with fever, leukocytosis, tachycardia, and acute respiratory failure with hypoxia secondary to underlying pneumonia. Lactic acid level was within normal limits. WBC stable to declining until steroids restarted. Blood cultures negative. Had 8 days of IV antibiotics and Pulmonary switched to levofloxacin po now with plans for 7 days of total treatment. (2) Acute respiratory failure with hypoxia: Code(s): J96.01 - Acute respiratory failure with hypoxia Status: Acute Assessment and Plan: The patient was hypoxic on admission. CTA showing ground glass with crazy-paving pattern which can be consistent with VAPI with lipoid pneumonia predominate pattern. SARS2-CoV-2 negative x 3. She does have Grade II diastolic dysfunction but BNP normal and no clinically concerns making CHF unlikely. She received a dose of dexamethasone in the ED 06/11 and continued but stopped 06/18; Pul started prednisone 40 qd with plans for 14 days total. Continue abx for atypical bacterial PNA. Patient refused bronch. Pulmonary will follow in the clinic. (3) Bilateral pneumonia: Code(s): J18.9 - Pneumonia, unspecified organism Status: Acute Assessment and Plan: WBC was elevated to 18.9K and with fevers. Chest CT showing prominent pulmonary patchy ground glass opacities with bilateral mid and lower lung predominance. Legionella, strep pneumoniae Ag negative and mycoplasma + but IgG. Procalcitonin level is low. Fevers resolved. SARS2-CoV2 negative x3. HIV negative. Influenza negative. Repeat CTA showing interval increase in extensive bilateral ground glass opacities and smooth septal line thickening. As above received 8 days of IV antibiotics and change to p.o. levofloxacin 750 daily for 7 more days for atypical PNA as per pulmonary. Prednisone restarted at 40 daily for total of 14 days. Discussed with pulmonary. May have lipoid PNA from vaping. Radiology felt that COVID still on the differential. (4) Person under investigation for COVID-19: Code(s): Z20.822 - Contact with and (suspected) exposure to COVID-19 Status: Acute Assessment and Plan: As above. Patient tested negative times 3! (5) Pulmonary embolism: Qualifiers: Acute cor pulmonale presence: without acute cor pulmonale Chronicity: acute Pulmonary embolism type: unspecified Qualified Code(s): I26.99 - Other pulmonary embolism without acute cor pulmonale Code(s): I26.99 - Other pulmonary embolism without acute cor pulmonale Status: Acute Assessment and Plan: Initial Chest CTA showing a small pulmonary emboli in the lingula. She was started on Lovenox therapeutic dose. LE venous dopplers negative. Echo 60-65% with no pul HTN. Repeat CTA 06/18 no emboli so the full dose lovenox stopped and chsnged to prophylactic only. Spoke with a 2nd radiologist who reviewed the films. He felt that the first CTA had quite a bit of motion artifact and felt that PE was unlikely. As such, no plans for buttermaker continuous churn anticoagulation. Pulmonary embolism ruled out. (6) Hepatic steatosis: Code(s): K76.0 - Fatty (change of) liver, not elsewhere classified Status: Acute Assessment and Plan: LFTs were previously elevated as an outpatient. She states she was diagnosed with hepatic steatosis when she went to the ED in [place]. LFTs have been up and down since admission related to infection/sepsis with underlying diffuse hepatic steatosis. Hepatitis profile neg, Fe studies ok, MACARIO and anti mitochondrial antibodies negative. Preg test negative. Follow as outpatient. Patient advised to adhere to a low fat diet and
--- NOTE | 2020-06-23 15:23 | ECG_ITS ---
Measurements Intervals [place] Rate: 102 P: 24 AR: 152 QRS: 49 QRSD: 78 T: 24 QT: 302 QTc: 394 Interpretive Statements SINUS TACHYCARDIA BORDERLINE ECG Electronically Signed On 06-23-2020 16:07:36 RENTAL CLERK by Julien Boyce D.O.
--- NOTE | 2020-06-23 15:49 | PM.CNCAR ---
Assessment and Plan Assessment and plan (1) Atypical pneumonia: Code(s): J18.9 - Pneumonia, unspecified organism Status: Acute Assessment and Plan: On antibiotics and managment per ID and hospitalist. (2) Anxiety: Code(s): F41.9 - Anxiety disorder, unspecified Status: Acute Assessment and Plan: On Ativan prn. (3) Tachycardia: Code(s): R00.0 - Tachycardia, unspecified Status: Acute Assessment and Plan: Sinus tachycardia and inappropriate sinus tachycardia. Probably exacerbated by underlying anxiety and atypical pneumonia. No heart failure related to having this all her life. Discussed starting low dose beta mary ellen such as Toprol XL 12.5 mg daily and if HR<130 bpm she may safely be discharged home. F/U with me in 1 week. History of Present Illness History of Present Illness Consult date/time: 06/23/20 15:49 Reason for consult: Sinus tachycardia. 24 yr old woman who has been in hospital for last 12 days due to atypical pneumonia with extensive groundglass opacities in both lungs. She reports a history of having fast heart rates all her life and could be at 130 bpm at rest per patient and would be even faster with activity. She also has a history of anxiety and was vaping THC for 3 months daily prior to admission. Her initial symptoms were cough, sob, weakness. She states about 5 days ago her symptoms resolved. She has been treated with Dexamethasone, antibiotics. Today it was noted that when she got up her HR went to 200 bpm though I could not find that on telemetry. I did see HR in 130's to 163 bpm range. She admits to feeling anxious since she wants to go home for several days now. Denies chest pain, sob, orthopnea, PND, edema. EKG: Sinus rhythm at 98 bpm on 06/20/20. Echo: EF 60-65%, grade II diastolic dysfunction on 06/16/20. Reason For Visit: pneumonia, pulmonary embolus, hypoxia Review of Systems Review of Systems: All systems reviewed & are unremarkable except as noted in HPI and below Constitutional: Constitutional: Reports as per HPI, Denies chills and Denies fatigue Cardiovascular: Cardiovascular: Reports as per HPI, Denies chest pain, Denies irregular heart rhythm, Denies leg edema and Denies lightheadedness Respiratory: Respiratory: Reports as per HPI and Denies dyspnea Gastrointestinal: Gastrointestinal: Reports as per HPI and Denies abdominal pain Genitourinary: Genitourinary: Reports as per HPI and Denies nocturia Musculoskeletal: Musculoskeletal: Reports as per HPI Neurologic: Reports as per HPI, Denies dizziness and Denies syncope [facility] Past Medical History Medical History (Updated 06/22/20 @ 15:49 by Abhi Miranda MD) Anxiety Hepatic steatosis Surgical History Surgical History (Updated 06/11/20 @ 21:21 by Yamila Chery PA-C) No history of previous surgery Family History Family History Other No significant family history Social History Social History (Updated 06/11/20 @ 21:22 by Yamila Chery PA-C) Social History: The patient lives in [place] with her boyfriend. Lifelong nonsmoker. No illicit substance use. She used to drink about 3 alcoholic beverages a day but quit in the fall. She designates her dad Omid as her surrogate decision maker and she wishes to be a full code. Spiritual care concerns: No Meds Home Medications and Allergies Home Medications Medication Instructions Recorded Confirmed Type No Home Medications 06/11/20 06/11/20 History Allergies Allergy/AdvReac Type Severity Reaction Status Date / Time No Known Allergies Allergy Verified 06/11/20 08:30 Vital Signs Vital Signs - 24 hr 06/22/20 16:00 06/22/20 16:46 06/22/20 20:00 Temperature 97.7 F Pulse Rate 126 H 119 H 136 H Respiratory Rate 20 Blood Pressure 127/74 Pulse Oximetry 98 06/22/20 21:59 06/22/20 22:00 06/23/20
[2020-06-23] MEDS: METOPROLOL SUCCINATE EXT REL 12.5 MG TABCR PO (16:23)
--- NOTE | 2020-06-23 17:49 | PC.NURSE ---
1730 pt pulse is 125 at rest , got pt up to walk and pulse went up to 165, remained 158 while walking , pulse went back down to 123 when she was back in bed.
--- NOTE | 2020-06-23 18:52 | PC.NURSE ---
1830 pt pulse is 110 at rest upon getting up her pulse went to 129, then when ambulating went to 150 , pt pulse went back down to [address] back in bed Dr. Miranda notified notified and Austen Iniguez notified stated it was fine with her going home with her pulse below 130 at rest , and to continue toprol xl 12.5 daily and to follow up with him in a week , Dr Miranda notified
[2020-06-24 21:39] LABS: ANCA Screen Negative (Negative)
[2020-06-27 16:50] LABS: ANA Cascade Screen Positive (Negative)
[2020-06-28 05:04] LABS: Chromatin (Nucleosomal) Ab <1.0; RNP Antibody 1.1; Sm Antibody <1.0; Sm/RNP Antibody <1.0
--- NOTE | 2020-07-08 09:17 | PC.NURSE ---
MACARIO and MEDICAL RESEARCHER faxed to Dr. Roberson
== END 2020-06-23 19:58 | disposition home or self-care (01) | DRG 871 ==
LOC: ANHED 10:20 → ANHIMU 14:12 → ANHICU 06-12 16:27 → ANHIMU 06-13 07:48 → ANH3MEDSUR 06-17 11:51
PROVIDERS: Internal Medicine; Internal Medicine Critical Care Medicine; Internal Medicine Pulmonary Disease; Physician Assistant; Admitting Provider Internal Medicine; Emergency Provider Emergency Medicine; PCP Family Medicine; Visit Provider Internal Medicine
DX: A41.9 Sepsis, unspecified organism (principal); J18.9 Pneumonia, unspecified organism; J96.01 Acute respiratory failure with hypoxia; Z20.822 Contact with and (suspected) exposure to COVID-19; Z23 Encounter for immunization; K76.0 Fatty (change of) liver, not elsewhere classified; R00.0 Tachycardia, unspecified; F41.9 Anxiety disorder, unspecified
CPT/HCPCS: 36415; 36600; 71045; 71275; 74177; 80048; 80053; 80069; 80076; 80202; 81001; 81025; 82104; 82140; 82375; 82390; 82728; 82805; 83036; 83050; 83516; 83520; 83540; 83550; 83605; 83615; 83690; 83735; 83880; 84145; 84443; 84484; 85025; 85027; 85380; 85610; 85730; 86021; 86038; 86140; 86430; 86703; 86704; 86705; 86706; 86709; 86738; 86803; 87040; 87086; 87088; 87340; 87385; 87449; 87522; 87804; 87899; 90471; 90653; 93005; 93306; 93970; 94618; 96361; 96365; 96375; 97110; 97161; 97530; 99291; A9270; C9803; G0008; G0432; J0131; J0456; J0696; J0780; J1100; J1650; J2405; J3370; J7030; J7512; J8540; Q9967; U0003; U0005